=== PATIENT | female | born 1935 | race Caucasian/White ===

== ENCOUNTER 2017-07-22 15:57 | Observation (INO) | payer MEDICARE, OTHER, SELFPAY ==
[2017-07-22 15:58] VITALS: BP 184/83; PULSE 65; RESP 16; TEMP 36.5; O2SAT 98; BMI 26.5
--- NOTE | 2017-07-22 16:12 | CT_ITS ---
STUDY: CT CERVICAL SPINE WITHOUT CONTRAST REASON FOR EXAM: Female, 81 years old. Neck pain after fall. RADIATION DOSAGE (If Supplied By Facility): CTDIvol = ( 24.02 ) mGy, DLP = ( 484.36 ) mGycm TECHNIQUE: High resolution transaxial imaging was performed without contrast material. Sagittal and coronal images were reconstructed. Individualized dose optimization techniques were used for this CT. COMPARISON: None FINDINGS: Normal craniovertebral junction. There are degenerative changes of the anterior atlantoaxial articulation. Normal odontoid process. Normal cervical lordosis. The bones appear osteopenic. There may be old spinous process fracture of C7. C2-3: Normal endplates. Normal disc height and morphology. Normal central canal and intervertebral neuroforamina. C3-4: Normal endplates. Normal disc height and morphology. Normal central canal and intervertebral neuroforamina. C4-5: Normal endplates. Normal disc height and morphology. Normal central canal and intervertebral neuroforamina. C5-6: There is narrowing of this disc space. The patient motion limits the quality of the axial images. Neural foramina are bilaterally narrowed. There is no significant central acquired canal stenosis. C6-7: Normal endplates. Normal disc height and morphology. Normal central canal and intervertebral neuroforamina. C7-T1: Normal endplates. Normal disc height and morphology. Normal central canal and intervertebral neuroforamina. Normal visualized soft tissue structures. CT/Spine Cervical without Contras IMPRESSION: No CT evidence of acute compression or displaced fracture of the cervical spine. Electronically Signed: Kaelyn Jason MD at 17:31 EDT , Service support ,
--- NOTE | 2017-07-22 16:12 | CT_ITS ---
STUDY: CT BRAIN WITHOUT CONTRAST REASON FOR EXAM: Female, 81 years old. Status post fall with the right-sided scalp laceration. Patient has dizziness. RADIATION DOSAGE (If Supplied By Facility): CTDIvol = ( 44.99 ) mGy, DLP = ( 779.24 ) mGycm TECHNIQUE: Transaxial CT imaging of the brain was performed without administration of intravenous contrast material. Multiplanar reformations are submitted for interpretation. Individualized dose optimization techniques were used for this CT. COMPARISON: MRI of the brain dated February 15, 2016. FINDINGS: There is soft tissue contusion adjacent to the posterior right parietal scalp. There is soft tissue emphysema in the region of the contusion suggesting there is associated laceration. Normal calvarium. There is moderate cerebral atrophy with widening of the extra-axial spaces and ventricular dilatation. There are areas of decreased attenuation within the white matter tracts of the supratentorial brain, consistent with microvascular disease changes. There is a small area of encephalomalacia within the left basal ganglia that may be the result of old infarct. Normal brainstem. There is mild cerebellar atrophy. There is no intracranial hemorrhage. There is mild atherosclerotic calcification of intracranial arteries. There are left sided maxillary mucous retention cysts. CT/Brain/Head without Contrast IMPRESSION: 1. Chronic involutional changes of the brain. 2. No CT evidence of acute intracranial hemorrhage. 3. Posterior right parietal scalp contusion and laceration. Electronically Signed: Kaelyn Jason MD at 17:41 EDT , Service support ,
[2017-07-22] MEDS: Diphth,Pertuss(Acell),Tet Vac 0.5 ML Vial IM (16:25)
--- NOTE | 2017-07-22 17:05 | EKG12_ITS ---
Test Reason : DYSRHYTHMIA Blood Pressure : / mmHG Vent. Rate : 056 BPM Atrial Rate : 056 BPM P-R Int : 180 ms QRS Dur : 086 ms QT Int : 446 ms P-R-T Axes : 047 -21 011 degrees QTc Int : 430 ms Sinus bradycardia Nonspecific ST abnormality Abnormal ECG Confirmed by JAYCEE CAMACHO, KEN ([id number]), restaurant expeditor GAMAL BOTELLO ([id number] on 07/24/2017 3:07:45 PM Referred By: SHWETA Confirmed By:KEN CHAMPION MD
[2017-07-22] MEDS: 0.9% Normal Saline 1,000 ML 150 ML IV (17:46)
[2017-07-22 18:00] LABS: Anion Gap 5 (5-15); BUN 14 mg/dL (7-18); BUN/Creat Ratio 11.4 RATIO (10-20); Calcium,Total 8.8 mg/dL (8.5-10.1); Chloride 107 mmol/L (98-107); Creatinine, Serum 1.23 mg/dL (0.55-1.02); EST Glomerular Filtration Rate 44 mL/min (>60); Est Glom Filt Rate - Afr Amer 54 mL/min (>60); Estimated Creatinine Clearance 29.17 ml/min; Glucose 101 mg/dL (74-106); Potassium 3.9 mmol/L (3.5-5.1); Sodium Level 140 mmol/L (136-145)
[2017-07-22 18:04] LABS: Absolute Lymphocyte Count 1.43 X10^3/ul (0.83-4.51); Basophil# 0.02 X10^3/uL; Basophil% 0.1 % (0-1); Eosinophil# 0.19 X10^3/uL; Eosinophils% 1.3 % (0-5); Hematocrit 41.2 % (37-47); Hemoglobin 13.8 g/dl (12.0-15.0); Lymphocyte # 1.43 X10^3/ul (4.0); Lymphocyte % 9.8 % (19-41); Mean Corp Hgb Conc 33.5 g/gl (32-36); Mean Corpuscular Hgb 31.3 pg (27.0-32.0); Mean Corpuscular Volume 93.4 fL (81-99); Mean Platelet Vol. 10.6 fl (6.2-12.0); Monocyte# 0.79 X10^3/uL; Monocyte% 5.4 % (0-10); Neutrophil # 12.03 X10^3/uL (2.7-7.7); Neutrophil % 82.9 % (47-70); Platelet Count 140 K/mm3 (150-450); RBC Distribution Width CV 12.7 % (11.6-14.6); RBC Distribution Width SD 42.9 fl (35.1-43.9); Red Blood Count 4.41 M/mm3 (4.2-5.4); White Blood Count 14.5 K/mm3 (4.4-11.0)
[2017-07-22 18:07] LABS: POSITIVE COUNT NO; POSITIVE DIFFERENTIAL NO; POSITIVE MORPHOLOGY NO
--- NOTE | 2017-07-22 18:17 | ED.VISSUMM ---
- ER Visit Summary Date of Service: 07/22/17 Chief Complaint: [Head injury] History of Present Illness: The patient is a 81 F [presents the emergency department with a head injury that occurred today prior to arrival emergency department. Patient apparently had gone outside to pull some weeds and cannot really tell me what happened. Patient does have a history of Alzheimer's dementia. Patient did eventually come into the house and her daughter noted that she had blood about her head and a gash to the back of her head. Daughter went and looked outside and noted that there was blood at the bottom of the steps leading into the house however when she looked at where the patient was gardening she did not see any evidence of blood. Patient on arrival describes a headache. She denied neck pain. She denies any chest pain or abdominal pain.] Physical Examination: [HEENT-PERRLA, EOMI. Cranial nerves II through XII grossly intact. TMs clear. Mucous membranes moist. No adenopathy. Patient has a 4 cm scalp laceration to the right posterior occiput without any bony step-offs or depressions noted. No significant bleeding currently. Patient did have some mild tenderness to the lower C-spine without any step-offs noted. Cardiovascular-regular rate and rhythm without murmur or ectopy Lungs-clear to auscultation, chest wall stable without crepitus or subcu emphysema Abdomen-normoactive bowel sounds, soft, nontender, no rebound or rigidity, no peritoneal signs. Extremities-intact ?4, normal range of motion, normal pulses, atraumatic] Test Results: [CT scan of the brain without contrast showed chronic involutional changes but no hemorrhage or any acute disease process. CT C-spine showed no fractures. CBC with differential showed a slightly elevated white blood cell count of 14.5, hemoglobin 14, hematocrit 41, platelets 140. Chemistries unremarkable. Troponin was less than 0.015. EKG showed sinus bradycardia with rate of 56 bpm.] Emergency Department Course and Treatment: Patient continues to complain of dizziness with standing. Urinalysis is ordered and pending as patient refused straight cath. [] Treatment Plan: [Admit] Disposition: [Admit] Impression: [Dizziness Closed head injury Scalp laceration 4 cm-simple repair] This note was generated with CoverHoundation software. It may contain incorrect words, spelling, and punctuation that were not noted in review of the chart prior to signing ED Disposition - Plan for ED Patient: Chief Complaint: Laceration Referrals: Lexa Brooks DO [Primary Care Provider] -
--- NOTE | 2017-07-22 18:20 | NURSING ---
DR GABRIEL FOR DR ROCK
[2017-07-22 18:21] VITALS: BP 131/89; PULSE 83; RESP 18; O2SAT 96
--- NOTE | 2017-07-22 18:23 | ED.DCSUM_ITS ---
- ER Visit Summary Date of Service: 07/22/17 Chief Complaint: [Head injury] History of Present Illness: The patient is a 81 F [presents the emergency department with a head injury that occurred today prior to arrival emergency department. Patient apparently had gone outside to pull some weeds and cannot really tell me what happened. Patient does have a history of Alzheimer's dementia. Patient did eventually come into the house and her daughter noted that she had blood about her head and a gash to the back of her head. Daughter went and looked outside and noted that there was blood at the bottom of the steps leading into the house however when she looked at where the patient was gardening she did not see any evidence of blood. Patient on arrival describes a headache. She denied neck pain. She denies any chest pain or abdominal pain. ] Physical Examination: [HEENT-PERRLA, EOMI. Cranial nerves II through XII grossly intact. TMs clear. Mucous membranes moist. No adenopathy. Patient has a 4 cm scalp laceration to the right posterior occiput without any bony step -offs or depressions noted. No significant bleeding currently. Patient did have some mild tenderness to the lower C-spine without any step-offs noted. Cardiovascular-regular rate and rhythm without murmur or ectopy Lungs-clear to auscultation, chest wall stable without crepitus or subcu emphysema Abdomen-normoactive bowel sounds, soft, nontender, no rebound or rigidity, no peritoneal signs. Extremities-intact ?4, normal range of motion, normal pulses, atraumatic] Test Results: [CT scan of the brain without contrast showed chronic involutional changes but no hemorrhage or any acute disease process. CT C- spine showed no fractures. CBC with differential showed a slightly elevated white blood cell count of 14.5, hemoglobin 14, hematocrit 41, platelets 140. Chemistries unremarkable. Troponin was less than 0.015. EKG showed sinus bradycardia with rate of 56 bpm.] Emergency Department Course and Treatment: Patient continues to complain of dizziness with standing. Urinalysis is ordered and pending as patient refused straight cath. [] Treatment Plan: [Admit] Disposition: [Admit] Impression: [Dizziness Closed head injury Scalp laceration 4 cm-simple repair] This note was generated with [employer]orge[employer]ation software. It may contain incorrect words, spelling, and punctuation that were not noted in review of the chart prior to signing ED Disposition - Plan for ED Patient: Chief Complaint: Laceration Referrals: Lexa Brooks DO [Primary Care Provider] -
[2017-07-22 19:02] LABS: Mucous, Urine 0 SEEN /hpf (<or=2+)
--- NOTE | 2017-07-22 19:04 | HP.PCM_ITS ---
Problem List (1) Lightheadedness Status: Acute (2) Fall Status: Acute Qualifiers: Encounter type: initial encounter Qualified Code(s): W19.XXXA - Unspecified fall, initial encounter History of Present Illness Date of Admission: 07/22/17 Chief Complaint: Fall, lightheadedness, right occipital scalp laceration The patient is a 81 year old F was seen in the emergency room at [facility] after sustaining a fall at home which was unwitnessed and sustaining a laceration to the right occipital scalp area. Patient has Alzheimer's dementia and is unable to give an adequate history-it is unknown whether she lost consciousness after the fall. It is also unknown why the patient fell. Review of systems was unobtainable from the patient also. Patient lives with her at home. Her daughter and are in the room at the time of my examination. Evaluation in the emergency room included a CT of the cervical spine CT of the brain was no acute process noted, patient had a CBC which showed an elevated white blood cell count, creatinine was slightly elevated. Urinalysis was not able be obtained at the time of this dictation it is pending. The right occipital scalp laceration was sutured with 5 nylon sutures by the emergency room physician. Patient continued to complain of dizziness but when asked whether the room was spinning she said now. Due to the fact that the patient will be unstable walking and may have had a concussion, I feel patient needs to be placed in observation status on MedSurg and monitored. She is on a beta-ginette and I would like to monitor on telemetry to make sure she does not get bradycardic. Patient will be seen by PT and OT tomorrow Past Medical History Past Medical History (Chronic Problems): Chronic Problems Dementia (Chronic) Allergies No Known Allergies Allergy (Verified 07/22/17 15:57) Home Medications: Ambulatory Orders Medication Instructions Recorded Atenolol [Tenormin (beta ginette)] 25 mg PO DAILY 02/15/16 Donepezil HCl 10 mg PO DAILY #1 tablet 02/15/16 Memantine Hydrochloride [Namenda] 5 mg PO BID #60 tablet 02/15/16 Simvastatin [Zocor] 20 mg PO QHS 02/15/16 Valsartan [Diovan] 160 mg PO DAILY #90 tablet 02/15/16 Diazepam [Valium] 2 mg PO TID #10 tablet 04/06/17 Surgical History: tonsillectomy, - - Tubal ligation, removal of breast cyst Psychiatric History: - - Alzheimer's dementia CORPORATE RELATIONS DIRECTOR History: No pertinent CORPORATE RELATIONS DIRECTOR history Lives: Spouse/ Significant Other Smoking Status: Never smoker Tobacco Use: Non-smoker Alcohol: None Drugs: None - *Family History Maternal History Items: Cancer - Colon cancer Paternal History Items: - - Alzheimer's dementia Review of Systems Comment: Unobtainable due to Alzheimer's dementia, information was obtained from the patient's daughter and who are in the room at the time my examination VTE Information - Inpt Only VTE Present on Admission: No VTE Mechan Device Prophylaxis: SCD's VTE Pharm Prophylaxis ordered?: No Reason prophylaxis not ordered:: Treatment Not Indicated - SCD's ordered Patient Problems: Active and Suspected Problems Lightheadedness (Acute) Fall (Acute) - Physical Exam General: Alert, Cooperative, No apparent distress, Well developed, Well nourished, Confused HEENT: Atraumatic, PERRLA, EOMI, Normocephalic, - - Scalp laceration noted in the occipital area 4 cm in length Oral: Moist Mucosa Neck: Supple, No JVD, Negative Carotid Bruits, No Nuchal Rigidity, Trachea Midline, Thyroid Normal Size and Texture Lungs: Clear to auscultation, Normal air movement, No rhonchi, No wheeze, No rales Cardiovascular: Regular rate, Regular Rhythm, Normal S1, Normal S2, No murmurs, No Ectopic Activity, PMI Normal, No rub noted, No Gallop Abdomen: Bowel Sounds Present, Soft, Non Tender, Non-Distended, No hernias noted Extremities: No clubbing, No cyanosis, No edema, Capillary Refill Less than 3 Seconds Skin: No rashes, Ulcer/ Wound - There is a skin tear noted over the patient's right forearm near the elbow area Musculoskeletal: No Tenderness to Palpation of Joints or Extremities Neurological: Cranial nerves II-XII grossly intact, Neuro grossly intact, Sensory exam intact to light touch and pain, Coordination normal Psych/Mental Status: - - She is alert, she follows commands appropriately, she is confused Vital Signs Temp Pulse Resp BP Pulse Ox 97.7 F L 83 18 131/89 H 96 07/22/17 15:58 07/22/17 18:21 07/22/17 18:21 07/22/17 18:21 07/22/17 18:21 Oxygen Delivery Method Room Air Weight: 68.039 kg Body Mass Index (BMI) 26.5 Laboratory Tests Past 24 Hrs 07/22/17 07/22/17 17:35 17:35 WBC 14.5 H RBC 4.41 Hgb 13.8 Hct 41.2 MCV 93.4 MCH 31.3 MCHC 33.5 RDW 12.7 RDW Differential 42.9 Plt Count 140 L MPV 10.6 Immature Gran % (Auto) 0.500 Neut % (Auto) 82.9 H Lymph % (Auto) 9.8 L Nolan % (Auto) 5.4 Eos % (Auto) 1.3 Baso % (Auto) 0.1 Absolute Neuts (auto) 12.0 H Absolute Lymphs (auto) 1.43 Total Counted Not Reportable Sodium 140 Potassium 3.9 Chloride 107 Carbon Dioxide 28.0 Anion Gap 5 BUN 14 Creatinine 1.23 H Estim Creat Clear Calc 29.17 Est GFR (MDRD) Af Amer 54 L Est GFR (MDRD) Non-Af 44 L BUN/Creatinine Ratio 11.4 Glucose 101 Calcium 8.8 Troponin I < 0.015 Assessment/Plan Active and Suspected Problems Lightheadedness (Acute) Fall (Acute) #1 concussion/closed head injury-patient will be placed in observation status on MedSurg telemetry, she will continue on her home medications, I will place her on Valium 2 mg p.o. 3 times daily-she has not been taking this at home, it is a as needed medication. PT and OT will see the patient, I do not believe the patient needs neurological checks #2 occipital scalp laceration, this is not bleeding at this time #3 hypertension-patient will be maintained on her present medications, she will be on telemetry due to the fact she is on a beta-ginette and she is bradycardic presently. #4 Alzheimer's dementia-patient's Namenda will be increased when she leaves the hospital, she is only on 5 mg twice a day. #5 leukocytosis-etiology unclear, at the time of this dictation urinalysis is pending. CBC will be rechecked tomorrow Code Visit OBSV E&M: 65816 Initial observation care L3
[2017-07-22 19:06] LABS: Color, Urine Yellow (Yellow); Glucose, Dipstick Normal (Normal); Ketone-Dipstick Negative (Negative); Leukocyte Esterase-Dipstick 500 /ul (Negative); Nitrite-Dipstick Negative (Negative); Occult Blood-Urine 25 /ul (Negative); Protein-Dipstick Negative (Negative); Urine Bilirubin Dipstick Negative (Negative); Urine Clarity Cloudy (Clear); Urine Urobilinogen Normal (Normal)
[2017-07-22 19:09] VITALS: BP 142/82; PULSE 86; RESP 18; O2SAT 97
[2017-07-22 19:18] LABS: Bacteria 1+ /hpf (None Seen); Squamous Epithelial Cells - UA 0-5 SEEN /hpf (5-10); Transitional Epithelial - Ur 0-5 SEEN /hpf (0-5); White Blood Cells 10-25 SEEN /hpf (0-5)
[2017-07-22 19:19] LABS: Red Blood Cells-Urine 0-5 SEEN /hpf (0-5)
[2017-07-22] MEDS: 0.9% Normal Saline 1,000 ML 75 ML IV (19:50)
[2017-07-22 19:52] VITALS: BP 172/90; PULSE 62; RESP 16; TEMP 36.4; O2SAT 99
[2017-07-22 20:16] VITALS: BMI 25.9
[2017-07-22] MEDS: Ondansetron 4 MG/2 ML Vial IV (20:27)
[2017-07-22 20:28] VITALS: BMI 25.9
[2017-07-22 21:59] VITALS: PULSE 62
[2017-07-22] MEDS: diazePAM 2 MG Tablet PO (22:52)
[2017-07-22] MEDS: Memantine Hydrochloride 5 MG Tablet PO (22:52)
[2017-07-23 01:00] VITALS: BP 147/72
[2017-07-23 02:29] VITALS: PULSE 69
[2017-07-23 03:31] VITALS: BP 160/86; PULSE 73; RESP 16; TEMP 36.6; O2SAT 95
[2017-07-23 06:27] LABS: Absolute Lymphocyte Count 1.49 X10^3/ul (0.83-4.51); Absolute Neutrophil Count 7.8 X10^3/uL (2.0-7.7); Basophil# 0.01 X10^3/uL; Basophil% 0.1 % (0-1); Eosinophil# 0.19 X10^3/uL; Eosinophils% 1.9 % (0-5); Hematocrit 39.8 % (37-47); Hemoglobin 13.3 g/dl (12.0-15.0); Lymphocyte # 1.49 X10^3/ul (4.0); Lymphocyte % 14.7 % (19-41); Mean Corp Hgb Conc 33.4 g/gl (32-36); Mean Corpuscular Volume 92.8 fL (81-99); Mean Platelet Vol. 10.4 fl (6.2-12.0); Monocyte# 0.67 X10^3/uL; Monocyte% 6.6 % (0-10); Neutrophil # 7.75 X10^3/uL (2.7-7.7); Neutrophil % 76.5 % (47-70); Platelet Count 136 K/mm3 (150-450); RBC Distribution Width CV 12.7 % (11.6-14.6); RBC Distribution Width SD 42.8 fl (35.1-43.9); Red Blood Count 4.29 M/mm3 (4.2-5.4); White Blood Count 10.1 K/mm3 (4.4-11.0)
[2017-07-23] MEDS: diazePAM 2 MG Tablet PO ×2 (06:35→14:24)
[2017-07-23] MEDS: Acetaminophen 325 MG Tablet 650 MG PO (06:36)
[2017-07-23 06:44] LABS: Anion Gap 8 (5-15); BUN 9 mg/dL (7-18); BUN/Creat Ratio 9.2 RATIO (10-20); Calcium,Total 7.9 mg/dL (8.5-10.1); Chloride 110 mmol/L (98-107); Creatinine, Serum 0.98 mg/dL (0.55-1.02); EST Glomerular Filtration Rate 58 mL/min (>60); Est Glom Filt Rate - Afr Amer 70 mL/min (>60); Estimated Creatinine Clearance 36.61 ml/min; Glucose 108 mg/dL (74-106); Potassium 3.8 mmol/L (3.5-5.1); Sodium Level 141 mmol/L (136-145)
[2017-07-23 06:58] LABS: POSITIVE COUNT NO; POSITIVE DIFFERENTIAL NO; POSITIVE MORPHOLOGY NO
[2017-07-23 07:45] VITALS: PULSE 59
[2017-07-23] MEDS: Atenolol 25 MG Tablet PO (09:24)
[2017-07-23] MEDS: Donepezil HCl 10 MG Tablet PO (09:24)
[2017-07-23] MEDS: Memantine Hydrochloride 5 MG Tablet PO (09:24)
[2017-07-23] MEDS: 0.9% Normal Saline 1,000 ML 75 ML IV (09:24)
[2017-07-23 09:25] VITALS: BP 147/71; PULSE 69; RESP 18; TEMP 36.6; O2SAT 95
--- NOTE | 2017-07-23 10:51 | CASEMGMT ---
RN CM Face to Face with patient for initial transition planning/care coordination assessment. RN CM introduced self and role at [facility]. Patient sitting in chair, alert and confused, spouse and daughter at bedside. Patient willing to participate in assessment and is able to answer some questions with assistance from family. Care providers, pharmacy, and demographics verified. See link attached. Patient wishes to discharge home, therapy recommending HHC. Family agreeable for C and would like [facility]. Referral sent to [facility] with acceptance. Patient also setup with [facility] through [employer] which family was agreeable for [employer]. Family state they have no further needs or concerns at this time. CM to follow for discharge planning needs that may arise. Disposition Plan: Patient to discharge home with HHC, family support, and follow-up plans in place. Dora DIMAS, RN
--- NOTE | 2017-07-23 11:56 | PCM.DC ---
- Discharge Diagnoses Current Active Problems: Current Active and Chronic Problems Lightheadedness (Acute) Fall (Acute) You will use the following diet at home:: No restrictions Your food should be the consistency of: Regular Your liquids should be the consistency of: Regular/Thin Discharge Activity: Return to Normal Activity, Use Walker Weight Bearing Status: Full weight bearing Allergies/Adverse Reactions: Allergies No Known Allergies Allergy (Verified 07/22/17 15:57) Medications to take at Discharge Atenolol [Tenormin (beta ginette)] 25 mg PO DAILY 02/15/16 Simvastatin [Zocor] 20 mg PO QHS 02/15/16 Valsartan [Diovan] 160 mg PO DAILY #90 tablet 02/15/16 Diazepam [Valium] 2 mg PO TID #20 tab 07/23/17 Donepezil HCl [Aricept] 10 mg PO DAILY #30 tab 07/23/17 Memantine Hydrochloride [Namenda] 10 mg PO BID #60 tab 07/23/17 The following prescriptions were given: Donepezil HCl [Aricept] 10 mg PO DAILY #30 tab Memantine Hydrochloride [Namenda] 10 mg PO BID #60 tab Diazepam [Valium] 2 mg PO TID #20 tab Primary Care Physician: Lexa Brooks DO [Primary Care Provider] - Please follow up with your Primary Care Physician in: in one week for a visit and suture removal
[2017-07-23 14:25] VITALS: BP 162/84; PULSE 59; RESP 18; TEMP 36.9; O2SAT 95
--- NOTE | 2017-07-24 19:04 | DS.PCM_ITS ---
Discharge Date and Diagnosis Date of Admission: 07/22/17 Date of Discharge: 07/23/17 - Primary Discharge Diagnosis #1 concussion secondary to unwitnessed fall #2 right occipital scalp laceration #3 Alzheimer's dementia #4 hypertension #5 chronic renal disease stage III-etiology unknown - Secondary Discharge Diagnosis Chronic Problems Dementia (Chronic) Hospital Course and Treatment Operations: None Procedures: None Summary of Care Provided: The patient is a 81 year old F seen in the emergency room at [facility] after sustaining an unwitnessed fall at home. Patient was not able to provide any information due to the fact she had dementia. Examination in the emergency room revealed a slightly elevated white blood cell count, creatinine was slightly elevated, imaging studies did not show any evidence of intracranial hemorrhage, cervical spine CT did not show any evidence of dislocation or fracture. Patient complained of a feeling of lightheadedness in the emergency room and it was felt she was unable to walk without maximal assistance. Patient was placed in observation status on [facility] 3 for presumed concussion, she was seen by PT and OT, and her CBC was repeated which showed a normal white blood cell count. Patient's urinalysis had some white cells red cells and bacteria but the patient voiced no symptoms or signs of urinary tract infection and it was not felt that she had a urinary tract infection. Patient had 5 sutures placed in her occipital scalp area while in the emergency room due to a laceration in this area from her fall. On 07/23/17, patient was seen and examined, she was felt to be stable for discharge home and was instructed to use a walker-her family will assist her in using a walker. Outpatient PT and OT were arranged Discharge Activity: Return to Normal Activity, Use Walker Weight Bearing Status: Full weight bearing Home Medications: Medications to take at Discharge Atenolol [Tenormin (beta ginette)] 25 mg PO DAILY 02/15/16 Simvastatin [Zocor] 20 mg PO QHS 02/15/16 Valsartan [Diovan] 160 mg PO DAILY #90 tablet 02/15/16 Diazepam [Valium] 2 mg PO TID #20 tab 07/23/17 Donepezil HCl [Aricept] 10 mg PO DAILY #30 tab 07/23/17 Memantine Hydrochloride [Namenda] 10 mg PO BID #60 tab 07/23/17 Following Prescrptions Were Given to Patient: Donepezil HCl [Aricept] 10 mg PO DAILY #30 tab Memantine Hydrochloride [Namenda] 10 mg PO BID #60 tab Diazepam [Valium] 2 mg PO TID #20 tab Primary Care Physician: Lexa Brooks DO [Primary Care Provider] - Please follow up with your Primary Care Physician in: in one week for a visit and suture removal Disposition: Home with Home Health Minutes spent on discharge:: 25 Patient Condition:: Stable Medical Necessity - Tobacco Use Smoking Status: Never smoker Tobacco Use: Non-smoker Meaningful Use Info Meaningful Use Diagnoses (Choose all that apply): None applicable Code Visit OBSV E&M: 57428 Observation care discharge
== END 2017-07-23 15:01 | disposition home health service (06) ==
LOC: ED 16:49 → MS3 18:56
PROVIDERS: Admitting Provider Internal Medicine; Emergency Provider Emergency Medicine; Family Provider Student in an Organized Health Care Education/Training Program; PCP Student in an Organized Health Care Education/Training Program; Visit Provider Internal Medicine
DX: S06.0X9A Concussion with loss of consciousness of unspecified duration, initial encounter (principal); S01.01XA Laceration without foreign body of scalp, initial encounter; W19.XXXA Unspecified fall, initial encounter; Y93.H2 Activity, gardening and landscaping; G30.9 Alzheimer's disease, unspecified; F02.80 Dementia in other diseases classified elsewhere, unspecified severity, without behavioral disturbance, psychotic disturbance, mood disturbance, and anxiety; Z79.899 Other long term (current) drug therapy; Y92.007 Garden or yard of unspecified non-institutional (private) residence as the place of occurrence of the external cause; Z23 Encounter for immunization; D72.829 Elevated white blood cell count, unspecified; I12.9 Hypertensive chronic kidney disease with stage 1 through stage 4 chronic kidney disease, or unspecified chronic kidney disease; N18.3 Chronic kidney disease, stage 3 (moderate)
CPT/HCPCS: 12002; 36415; 70450; 72125; 80048; 81001; 84484; 85025; 90471; 90715; 93005; 96361; 96374; 97162; 97166; 97802; 99218; 99283; J7030; A4216; G0378; J2405

== ENCOUNTER 2017-07-25 17:17 | Inpatient (IN) | payer MEDICARE, OTHER, SELFPAY ==
[2017-07-25] VITALS (7 sets, daily range): BP systolic 165–204; BP diastolic 64–86; PULSE 55–60; RESP 19–24; TEMP 36.8–36.9; O2SAT 93–96; BMI 24.9; BMI 24.1
--- NOTE | 2017-07-25 17:41 | EKG12_ITS ---
Test Reason : Blood Pressure : / mmHG Vent. Rate : 055 BPM Atrial Rate : 055 BPM P-R Int : 172 ms QRS Dur : 090 ms QT Int : 446 ms P-R-T Axes : 030 -22 000 degrees QTc Int : 426 ms Sinus bradycardia Nonspecific ST abnormality Poor R wave progression Abnormal ECG Confirmed by TU CAMACHO, JAMES ([id number]), development editor GAMAL BOTELLO ([id number]) on 07/27/2017 10:56:27 AM Referred By: MARICEL Confirmed By:JAMES MAE MD
[2017-07-25 18:02] LABS: Absolute Lymphocyte Count 1.72 X10^3/ul (0.83-4.51); Absolute Neutrophil Count 6.4 X10^3/uL (2.0-7.7); Basophil# 0.03 X10^3/uL; Basophil% 0.3 % (0-1); Eosinophil# 0.49 X10^3/uL; Eosinophils% 5.2 % (0-5); Hematocrit 41.8 % (37-47); Hemoglobin 14.1 g/dl (12.0-15.0); Lymphocyte # 1.72 X10^3/ul (4.0); Lymphocyte % 18.3 % (19-41); Mean Corp Hgb Conc 33.7 g/gl (32-36); Mean Corpuscular Volume 91.9 fL (81-99); Mean Platelet Vol. 10.2 fl (6.2-12.0); Monocyte# 0.74 X10^3/uL; Monocyte% 7.9 % (0-10); Neutrophil % 68.1 % (47-70); Platelet Count 146 K/mm3 (150-450); RBC Distribution Width CV 12.4 % (11.6-14.6); RBC Distribution Width SD 41.4 fl (35.1-43.9); Red Blood Count 4.55 M/mm3 (4.2-5.4); White Blood Count 9.4 K/mm3 (4.4-11.0)
[2017-07-25 18:03] LABS: POSITIVE COUNT NO; POSITIVE DIFFERENTIAL NO; POSITIVE MORPHOLOGY NO
[2017-07-25 18:12] LABS: Bacteria 0 SEEN /hpf (None Seen); White Blood Cells 0 SEEN /hpf (0-5)
[2017-07-25 18:14] LABS: Anion Gap 6 (5-15); BUN 14 mg/dL (7-18); Calcium,Total 8.7 mg/dL (8.5-10.1); Chloride 106 mmol/L (98-107); Creatinine, Serum 1.08 mg/dL (0.55-1.02); EST Glomerular Filtration Rate 52 mL/min (>60); Est Glom Filt Rate - Afr Amer 62 mL/min (>60); Estimated Creatinine Clearance 34.68 ml/min; Glucose 89 mg/dL (74-106); Potassium 3.6 mmol/L (3.5-5.1); Sodium Level 143 mmol/L (136-145)
[2017-07-25 18:23] LABS: Color, Urine Yellow (Yellow); Glucose, Dipstick Normal (Normal); Ketone-Dipstick Negative (Negative); Leukocyte Esterase-Dipstick Negative /ul (Negative); Nitrite-Dipstick Negative (Negative); Occult Blood-Urine 150 /ul (Negative); Protein-Dipstick Negative (Negative); Urine Bilirubin Dipstick Negative (Negative); Urine Clarity Clear (Clear); Urine Urobilinogen Normal (Normal)
[2017-07-25 18:44] LABS: Mucous, Urine 3+ /hpf (<or=2+); Red Blood Cells-Urine 10-25 SEEN /hpf (0-5); Squamous Epithelial Cells - UA 0-5 SEEN /hpf (5-10)
--- NOTE | 2017-07-25 19:13 | ED.VISSUMM ---
- ER Visit Summary Date of Service: 07/25/17 Chief Complaint: Vertigo History of Present Illness: The patient is a [address] Brooks. She has a history of dementia and is a poor informant. Family reports that she fell 3 days ago. She was admitted to the hospital and kept overnight. They state that she has been confused for the past 2 days. This seems to wax and wane. Yesterday she was doing well. Today she has not gotten out of bed all day. Patient reports that this is because she is dizzy. It increases with movement of her head or standing. Home health nurse came out today and sent her to the emergency department with concerns about the safety of her and her together at home alone as they are both confused. Physical Examination: Vitals: Stable. Afebrile. General: Well-nourished and well-developed. Head: Normocephalic atraumatic. Neck: Supple, no lymphadenopathy. No JVD. Nontender. Cardiovascular: Bradycardic regular rhythm with a 2 out of 6 systolic murmur. Respiratory: No respiratory distress. Clear to auscultation bilaterally. Abdominal: Soft, nontender, nondistended, normal bowel sounds. No guarding, rebound, or peritoneal signs. Back: Nontender. Extremities: Nontender, no edema. Skin tear on her left forearm. Skin: Normal color, no rash. Neurologic: Alert and oriented ?1. Cranial nerves II through XII are intact. Normal strength and sensation. Psych: Normal affect. Test Results: EKG sinus bradycardia [address] changes. CBC is more for platelets 146 lymphocytes of 18. Chem-7 more for creatinine 1.08. UA is remarkable for 10-25 red blood cells (this was a cath specimen) and no bacteria. Emergency Department Course and Treatment: Patient has rested comfortably in the emergency department without complaint. Treatment Plan: At this time I do not feel the patient is safe to go home. She will be discussed with Dr. Henderson and admitted for further evaluation and treatment. Disposition: Admitted in stable condition. Impression: 1. Generalized weakness. 2. Confusion. 3. Skin tear left forearm. This note was generated with [employer] software. It may contain incorrect words, spelling, and punctuation that were not noted in review of the chart prior to signing ED Disposition - Plan for ED Patient: Chief Complaint: Syncope Referrals: Lexa Brooks DO [Primary Care Provider] -
--- NOTE | 2017-07-25 19:37 | HP.PCM_ITS ---
Problem List (1) Near syncope Status: Acute (2) Vertigo Status: Acute (3) Fall Status: Acute Qualifiers: Encounter type: initial encounter Qualified Code(s): W19.XXXA - Unspecified fall, initial encounter (4) Abnormal CT scan, head Status: Acute (5) Dysphagia Status: Chronic Qualifiers: Dysphagia type: unspecified Qualified Code(s): R13.10 - Dysphagia, unspecified (6) Dementia Status: Chronic Qualifiers: Dementia type: Alzheimer's disease Alzheimer's disease onset: unspecified onset Dementia behavioral disturbance: without behavioral disturbance Qualified Code(s): G30.9 - Alzheimer's disease, unspecified; F02.80 - Dementia in other diseases classified elsewhere without behavioral disturbance History of Present Illness Date of Admission: 07/25/17 Chief Complaint: Dizzy, lightheaded and vertigo since yesterday The patient is a 81 year old F with history of hypertension and dementia was discharged on 07/23/2017 after management for an unwitnessed fall with head laceration status post suture came to ER for dizziness, lightheadedness and vertigo. As per the daughter, who is power of sandblaster paint sprayer of health, whenever she tries to get up from bed, she feels dizzy lightheaded and vertigo. She is afraid of moving because of dizziness and fall. She also has mild generalized weakness. Patient also has dementia and she has waxing and waning confusion. As per the EMS vitals, vitals were stable except blood pressure 188/89 which later on got normal 130/68. No chest symptoms. Basic lab work in ER shows K3.6, RBC in UA 10-25 cells per hpf but no pyuria. Patient denies lower urinary tract symptoms. EKG normal sinus bradycardia at 55 bpm Past Medical History Past Medical History (Chronic Problems): Chronic Problems Dysphagia (Chronic) Dementia (Chronic) Allergies No Known Allergies Allergy (Verified 07/25/17 17:18) Home Medications: Ambulatory Orders Medication Instructions Recorded Atenolol [Tenormin (beta ginette)] 25 mg PO DAILY 02/15/16 Simvastatin [Zocor] 20 mg PO QHS 02/15/16 Donepezil HCl [Aricept] 10 mg PO DAILY 07/25/17 Memantine Hydrochloride [Namenda] 10 mg PO BID 07/25/17 Valsartan [Diovan] 160 mg PO DAILY 07/25/17 Surgical History: tonsillectomy, - - Tubal ligation, removal of breast cyst Psychiatric History: - - Alzheimer's dementia 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 Denies: Chills, Fever, Weight Change HEENT: Denies: Head Aches, Sinus Congestion, Sinus Drainage Cardiovascular: Denies: Chest Pain, Palpitations Respiratory: Denies: Cough, Shortness of breath at rest, Sputum production Gastrointestinal: Denies: Abdominal Pain, Nausea, Vomiting Genitourinary: Denies: Dysuria Musculoskeletal: Reports: Joint stiffness. Denies: Joint Tenderness Skin: Denies: Rash, Wounds Neurological: Denies: Numbness, Tingling, Focal weakness Psychiatric: Reports: Anxiety. Denies: Depression, Homicidal Ideations, Suicidal Ideations Hematologic/ Lymphatic: Denies: Easy Bruising, Easy Bleeding VTE Information - Inpt Only VTE Present on Admission: No VTE Mechan Device Prophylaxis: SCD's VTE Pharm Prophylaxis ordered?: Yes Patient Problems: Active and Suspected Problems Near syncope (Acute) Vertigo (Acute) - Physical Exam General: Alert, Oriented x3, Cooperative, Confused - Sometimes confusion and disorientation, - HEENT: Atraumatic, PERRLA, EOMI, Normocephalic Neck: Supple, No JVD, Negative Carotid Bruits Lungs: Clear to auscultation, Normal air movement Cardiovascular: Regular Rhythm, Normal S1, No murmurs Abdomen: Bowel Sounds Present, Soft, Non Tender, Non-Distended, No Hepato- splenomegaly Extremities: No edema, Capillary Refill Less than 3 Seconds Skin: No rashes, No breakdown Musculoskeletal: No Tenderness to Palpation of Joints or Extremities, Arthritic Changes, Muscle Wasting Neurological: Cranial nerves II-XII grossly intact, Neuro grossly intact Psych/Mental Status: Normal Affect, Appropriate Vital Signs Temp Pulse Resp BP Pulse Ox 98.5 F 55 L 22 H 185/64 H 96 07/25/17 17:19 07/25/17 19:23 07/25/17 19:23 07/25/17 19:23 07/25/17 19:23 Oxygen Delivery Method Room Air Weight: 145 lb Body Mass Index (BMI) 24.9 Laboratory Tests Past 24 Hrs 07/25/17 07/25/17 07/25/17 17:50 17:50 18:08 WBC 9.4 RBC 4.55 Hgb 14.1 Hct 41.8 MCV 91.9 MCH 31.0 MCHC 33.7 RDW 12.4 RDW Differential 41.4 Plt Count 146 L MPV 10.2 Immature Gran % (Auto) 0.200 Neut % (Auto) 68.1 Lymph % (Auto) 18.3 L [place] % (Auto) 7.9 Eos % (Auto) 5.2 H Baso % (Auto) 0.3 Absolute Neuts (auto) 6.4 Absolute Lymphs (auto) 1.72 Total Counted Not Reportable Sodium 143 Potassium 3.6 Chloride 106 Carbon Dioxide 31.0 Anion Gap 6 BUN 14 Creatinine 1.08 H Estim Creat Clear Calc 34.68 Est GFR (MDRD) Af Amer 62 Est GFR (MDRD) Non-Af 52 L BUN/Creatinine Ratio 13.0 Glucose 89 Calcium 8.7 Urine Color Yellow Urine Clarity Clear Urine pH 6.0 Ur Specific [place] 1.010 Urine Protein Negative Urine Glucose (UA) Normal Urine Ketones Negative Urine Occult Blood 150 H Urine Nitrite Negative Urine Bilirubin Negative Urine Urobilinogen Normal Ur Leukocyte Esterase Negative Urine RBC 10-25 SEEN Urine WBC 0 SEEN Ur Squamous Epith Cells 0-5 SEEN Urine Bacteria 0 SEEN Urine Mucus 3+ Assessment/Plan Active and Suspected Problems Near syncope (Acute) Vertigo (Acute) This is a 81 year old F with history of hypertension and dementia was discharged on 07/23/2017 after management for an unwitnessed fall with head laceration status post suture came to ER for dizziness, lightheadedness and vertigo. As per the daughter, who is power of sandblaster paint sprayer of health, whenever she tries to get up from bed, she feels dizzy lightheaded and vertigo. She is afraid of moving because of dizziness and fall. She also has mild generalized weakness. Patient also has dementia and she has waxing and waning confusion. As per the EMS vitals, vitals were stable except blood pressure 188/89 which later on got normal 130/68. No chest symptoms. Basic lab work in ER shows K3.6, RBC in UA 10-25 cells per hpf but no pyuria. Patient denies lower urinary tract symptoms. 1. Near syncope with vertigo on movement: [facility] had CT head and C-spine which showed no acute change including no acute ICH or acute compression or displaced fracture of cervical spine. PT and OT. Patient will need Romy-Hallpike maneuver to assess for BPPV. Symptomatic management. 2. Generalized weakness with failure to thrive, with history of dementia and fluctuating alertness/confusion suggestive of delirium: Currently, patient is on baseline. Patient will need protective services case worker evaluation and SNF placement. Family agrees for that. Continue Aricept and Namenda. 3. Hypertension: On antihypertensive medication losartan and atenolol. Home medication reconciliation done. 4. DVT prophylaxis: On Lovenox and bilateral SCDs. This note was generated with Meddle dictation software. Every effort was made to ensure accuracy, however computerized electric drill operator mistakes may persist. Laboratory Results 07/25/17 17:50: WBC 9.4, RBC 4.55, Hgb 14.1, Hct 41.8, MCV 91.9, MCH 31.0, MCHC 33.7, RDW 12.4, RDW Differential 41.4, Plt Count 146 L, MPV 10.2, Immature Gran % (Auto) 0.200, Neut % (Auto) 68.1, Lymph % (Auto) 18.3 L, [place] % (Auto) 7.9, Eos % (Auto) 5.2 H, Baso % (Auto) 0.3, Absolute Neuts (auto) 6.4, Absolute Lymphs (auto) 1.72, Total Counted Not Reportable 07/25/17 17:50: Sodium 143, Potassium 3.6, Chloride 106, Carbon Dioxide 31.0, Anion Gap 6, BUN 14, Creatinine 1.08 H, Estim Creat Clear Calc 34.68, Est GFR ( MDRD) Af Amer 62, Est GFR (MDRD) Non-Af 52 L, BUN/Creatinine Ratio 13.0, Glucose 89, Calcium 8.7 07/25/17 18:08: Urine Color Yellow, Urine Clarity Clear, Urine pH 6.0, Ur Specific [place] 1.010, Urine Protein Negative, Urine Glucose (UA) Normal, Urine Ketones Negative, Urine Occult Blood 150 H, Urine Nitrite Negative, Urine Bilirubin Negative, Urine Urobilinogen Normal, Ur Leukocyte Esterase Negative, Urine RBC 10-25 SEEN, Urine WBC 0 SEEN, Ur Squamous Epith Cells 0-5 SEEN, Urine Bacteria 0 SEEN, Urine Mucus 3+ [] Code Visit OBSV E&M: 21602 Initial observation care L3
--- NOTE | 2017-07-25 21:00 | NURSING ---
Family reported that pt sometimes has problems swallowing food. This RN completed a dysphagia screen, pt passed. While giving pt night time medication pt had issues swallowing pills. pt was unable to get pills down with just water, but was able to with medication in applesauce. Family requested pt have Barium swallowing test completed while here because pt will not come in as outpatient for it. This RN informed family that pt can be made NPO and a consult for speech for follow up. notified.
[2017-07-25] MEDS: 0.9% Normal Saline 1,000 ML 75 ML IV (21:03)
[2017-07-25] MEDS: Atorvastatin Calcium 10 MG Tablet PO (21:03)
[2017-07-25] MEDS: Memantine Hydrochloride 10 MG Tablet PO (21:03)
[2017-07-25 23:00] LABS: Bedside Glucose 101 mg/dL (70-110)
[2017-07-26] VITALS (9 sets, daily range): BP systolic 151–163; BP diastolic 58–78; PULSE 54–64; RESP 16–18; TEMP 36.4–37.1; O2SAT 93–98
[2017-07-26 06:35] LABS: Bedside Glucose 90 mg/dL (70-110)
--- NOTE | 2017-07-26 10:27 | CASEMGMT ---
Social Work Assessment Referral Date: 07/26/2017 Date of Assessment: 07/26/2017 Reason for consult: Possible placement at discharge Informant: admitting Personal status: SW met with pt to complete initial assessment. Pt is alert and orientated x3. SW introduced self and role at [facility]. Pt states that she lives in a two story home with her . Pt states that she has about four steps to enter her home and states that before becoming dizzy she was able to complete steps. Pt states that her is able to assist at home and states that her daughter and grandchildren check in with her when needed. DME include cane and grab bars. Pt states that she was previously independent with ADLs and states that she is able to drive. Pt states that her and her will drive to [place], to get groceries, and to congregational. Pt states that she would like to home at discharge. Pt gave this worker permission to call her daughter Barbara to discuss discharge plans. Substance Abuse Hx: Pt denied Mental Health Hx: Pt denied SW met with pt's and granddaughter in room with pt. Pt's and granddaughter states that pt will need placement at discharge. SW informed pt's and granddaughter that pt is currently observation status and that if pt discharges with observation SNF placement will be private pay. Pt's granddaughter states that she was informed that the doctor will be admitting pt to inpatient and that they will keep her three midnights for Medicare. SW placed a call to pt's daughter Barbara. Barbara states that the plan is for to go to placement and that she would like a referral sent to [facility]. PEREZ faxed referral to [facility]. PEREZ will send updated clinicals to [facility] when available. SW will continue to follow along to assist with discharge. Plan: [facility] pending acceptance Jenise Cowart HEALTH PROGRAM SPECIALIST, UTILITY WORKER [place]
[2017-07-26] MEDS: Donepezil HCl 10 MG Tablet PO (10:35)
[2017-07-26] MEDS: Atenolol 25 MG Tablet PO (10:35)
[2017-07-26] MEDS: Memantine Hydrochloride 10 MG Tablet PO ×2 (10:36→21:19)
--- NOTE | 2017-07-26 11:44 | CASEMGMT ---
Social Work Note PEREZ received a call from Rosa at [facility] stating that she is able to accept pt. PEREZ informed Rosa that pt is still in observation and that it sounded like pt should be admitting to inpatient today. PEREZ informed Rosa that pt's third midnight stay will be Sunday night and pt should be ready for discharge on Sunday. Rosa states understanding. Plan: [facility] on Sunday Jenise Cowart MSW, FUNDS DEVELOPMENT DIRECTOR
[2017-07-26 12:36] LABS: Bedside Glucose 101 mg/dL (70-110)
[2017-07-26] MEDS: diazePAM 2 MG Tablet PO ×2 (13:35→21:19)
--- NOTE | 2017-07-26 15:37 | CASEMGMT ---
Social Work Note PEREZ placed a call to pt's daughter Barbara updating her that [facility] has accepted pt and that pt is now inpatient. PEREZ explained to Barbara that pt's third midnight stay will be Sunday and pt should be able to discharge to [facility] Sunday pending medically cleared. Barbara states understanding. Barbara states that she has a concern with pt currently receiving Valium. Barbara states that pt does better when she if off Valium and is wondering if pt can receive other medication for her dizziness. This worker informed Barbara that this worker will relay the message to pt's nurse. PEREZ updated ELSA Calix of Barbara's concerns regarding Valium for pt. RN Fifi states that she will talk to the doctor. Plan: [facility] Sunday Jenise Cowart MSW, BATTERY TECHNICIAN
--- NOTE | 2017-07-26 17:33 | PN_ITS ---
Patient Problems: Active and Suspected Problems Near syncope (Acute) Vertigo (Acute) Subjective: Patient was seen and examined today, she still complains of vertiginous symptoms with a feeling that the room is spinning. I talked with her granddaughter and who was in the room today, they both agree that she needs to go to a group home facility-they are not able to take care of her at home with her present symptoms. I made the patient a full admission today and added Valium 2 mg 3 times daily to her regimen. - Physical Exam General: Alert, Cooperative, No apparent distress, Well developed, Well nourished, Confused HEENT: Atraumatic, PERRLA, EOMI Oral: Moist Mucosa Neck: Supple, No Nuchal Rigidity, Trachea Midline, Thyroid Normal Size and Texture Lungs: Clear to auscultation, Normal air movement, No rhonchi, No wheeze, No rales Cardiovascular: Regular rate, Regular Rhythm, Normal S1, Normal S2, No murmurs, No Ectopic Activity, PMI Normal, No rub noted, No Gallop Abdomen: Bowel Sounds Present, Soft, Non Tender, Non-Distended, No hernias noted Extremities: No clubbing, No cyanosis, No edema, Capillary Refill Less than 3 Seconds Skin: No rashes, No breakdown Musculoskeletal: No Tenderness to Palpation of Joints or Extremities Lymphatic: No Cervical, Supraclavicular, or Inguinal Adenopathy Neurological: Cranial nerves II-XII grossly intact, Neuro grossly intact, Sensory exam intact to light touch and pain, Coordination normal Psych/Mental Status: Normal Affect, Appropriate, Alert and oriented to time, place, person, mood and affect Vital Signs Temp Pulse Resp BP Pulse Ox 97.6 F L 61 16 152/66 H 96 07/26/17 16:12 07/26/17 16:12 07/26/17 16:12 07/26/17 16:12 07/26/17 16:12 Oxygen Delivery Method Room Air Medical Necessity - Tobacco Use Smoking Status: Never smoker Assessment/Plan Active and Suspected Problems Near syncope (Acute) Vertigo (Acute) #1 vertigo-etiology unclear, possibly from recent concussion, continue PT and OT , patient will need placement in group home facility for rehab #2 Alzheimer's dementia #3 hypertension Code Visit Inpatient E&M: 62990 Subs Hosp L2
[2017-07-26] MEDS: Enoxaparin 40 MG/0.4 ML Syringe SC (18:10)
[2017-07-26] MEDS: Atorvastatin Calcium 10 MG Tablet PO (21:19)
[2017-07-27 03:13] VITALS: BP 167/70; PULSE 69; RESP 18; TEMP 36.9; O2SAT 95
[2017-07-27] MEDS: diazePAM 2 MG Tablet PO (06:13)
--- NOTE | 2017-07-27 08:39 | CASEMGMT ---
Addendum entered by Jenise Cowart 07/27/17 14:48: Transportation form on chart. Original Note: Addendum entered by Jenise Cowart 07/27/17 12:23: [facility] completed in [facility]. Original Note: Social Work Note PEREZ placed a call to Rosa at [facility] updating her that pt was admitted inpatient yesterday and pt's third midnight will be Sunday night and if medically cleared pt will go to [facility] on Sunday. PEREZ faxed updated clinicals to Rosa at [facility]. Green sheet on chart. Plan: [facility] Sunday Jenise Cowart MSW, MONUMENT MASON
[2017-07-27 09:32] VITALS: BP 139/70; PULSE 58; RESP 18; TEMP 36.8; O2SAT 95
--- NOTE | 2017-07-27 09:33 | NURSING ---
grand daughter requesting to have a different dr for her grandmother. notified dr byrne of family request. dr byrne informed grand daughter that there will be a different dr tomorrow.
[2017-07-27] MEDS: Memantine Hydrochloride 10 MG Tablet PO ×2 (09:40→21:47)
[2017-07-27] MEDS: Donepezil HCl 10 MG Tablet PO (09:40)
[2017-07-27] MEDS: Enoxaparin 40 MG/0.4 ML Syringe SC (09:40)
[2017-07-27] MEDS: Atenolol 25 MG Tablet PO (09:40)
[2017-07-27 14:02] VITALS: BP 138/65; PULSE 58; RESP 18; TEMP 36.6; O2SAT 96
--- NOTE | 2017-07-27 16:21 | PCM.PROGNOTE ---
Patient Problems: Active and Suspected Problems Near syncope (Acute) Vertigo (Acute) Subjective: Patient seen and examined today, patient does not voice any complaints this examiner of dizziness or lightheadedness. Patient's granddaughter was in the room this morning, she requested that the patient be taken off Valium-she feels that it may be sedating the patient, I see no evidence of any sedation at this time however. I told her we could stop the Valium, she wondered if the patient could be placed on Antivert, I told her this was an antihistamine and could cause sleepiness with the patient and I did not feel the patient should be on this. She also wondered whether the patient would need an MRI, when I asked the granddaughter why she thought she needed an MRI, she thought that the ears could be examined more thoroughly if she had an MRI-I told her that this was not so. Patient's granddaughter also stated the patient had behavioral problems last night, I told her it was probably due to her dementia and , she wondered if the patient could have anything for sleep at night, I told her that if I placed her on something for sleep it would sedate her during the day, the granddaughter wondered if she could be on melatonin, I told her that she could take melatonin and wrote for 10 mg at 7 PM nightly. After I left the room, the patient's granddaughter made a comment that she would like the patient to have a new physician, I went back in and talk to the granddaughter and told her that as of 07/28/17, the patient would have a new physician-the granddaughter stated that she was okay with this. I also called the patient's daughter, patient's daughter requested that I examined the patient's ear canals and tympanic membranes, she felt that cerumen could be causing patient's dizziness-I told her this was not possible, I examined the patient's ear canals and tympanic membranes with an otoscope, there is absolutely no sign of any cerumen in either ear canal and both tympanic membranes appeared normal. I then asked the patient at the same time, are you having lightheadedness or dizziness she stated no. I also talked to the patient's daughter inquiring whether she felt the patient needed to see a neurologist or an ENT physician, the patient's daughter stated no. I also asked the daughter whether she wanted the patient to have an MRI-patient's daughter stated no. The patient's daughter further stated that the patient has had a history of chronic dizziness, I asked her why she was concerned about the patient's current dizziness, the granddaughter stated that she felt the dizziness was worse this time. I feel that the patient probably has a component of anxiety due to her dementia, the patient's daughter stated that the patient has anxiety but she states that she does not feel she is particularly anxious at this time. We are currently awaiting approval for placement in a [place] facility, I think the patient's family is somewhat overbearing, most of my communication so far has been with the patient's daughter and granddaughter who seem to be directing treatment at this time. I have had very little conversation with the patient's . - Physical Exam General: Alert, Cooperative, No apparent distress, Well developed, Well nourished, Confused HEENT: Atraumatic, PERRLA, EOMI, Normocephalic, TM's Clear, EAC Clear Oral: Moist Mucosa Neck: Supple, No JVD, No Nuchal Rigidity, Trachea Midline, Thyroid Normal Size and Texture Lungs: Clear to auscultation, Normal air movement, No rhonchi, No wheeze, No rales Cardiovascular: Regular rate, Regular Rhythm, Normal S1, Normal S2, No murmurs, No Ectopic Activity, PMI Normal, No rub noted, No Gallop Abdomen: Bowel Sounds Present, Soft, Non Tender, Non-Distended, No hernias noted Extremities: No clubbing, No cyanosis, No edema, Capillary Refill Less than 3 Seconds Skin: No rashes, No breakdown Musculoskeletal: No Tenderness to Palpation of Joints or Extremities Neurological: Cranial nerves II-XII grossly intact, Neuro grossly intact, Sensory exam intact to light touch and pain Psych/Mental Status: Flat Affect, - - Patient is alert and has confusion, she is not agitated Vital Signs Temp Pulse Resp BP Pulse Ox 97.9 F 58 L 18 138/65 H 96 07/27/17 14:02 07/27/17 14:02 07/27/17 14:02 07/27/17 14:02 07/27/17 14:02 Oxygen Delivery Method Room Air Weight: 63.8 kg Intake and Output for Last 24 Hours 07/25/17 07/26/17 07/27/17 23:59 23:59 23:59 Intake Total 300 / 1146 540 / 540 Output Total 725 / 725 Balance 300 / 546 -185 / -185 Medical Necessity - Tobacco Use Smoking Status: Never smoker Assessment/Plan Active and Suspected Problems Near syncope (Acute) Vertigo (Acute) #1 vertigo-etiology unclear, possibly from recent concussion, continue PT and OT, patient will need placement in [place] for [place] #2 Alzheimer's dementia #3 hypertension #4 anxiety #5 status post concussion-07/22/17 #6 occipital scalp laceration-07/22/17 I had the patient's scalp sutures removed today, the occipital scalp wound she suffered approximately 5 days ago appears to be healing adequately and there is no evidence of any redness or drainage from the area. Code Visit Inpatient E&M: 93935 Subs Hosp L2
--- NOTE | 2017-07-27 16:30 | PN_ITS ---
Patient Problems: Active and Suspected Problems Near syncope (Acute) Vertigo (Acute) Subjective: Patient seen and examined today, patient does not voice any complaints this examiner of dizziness or lightheadedness. Patient's granddaughter was in the room this morning, she requested that the patient be taken off Valium-she feels that it may be sedating the patient, I see no evidence of any sedation at this time however. I told her we could stop the Valium, she wondered if the patient could be placed on Antivert, I told her this was an antihistamine and could cause sleepiness with the patient and I did not feel the patient should be on this. She also wondered whether the patient would need an MRI, when I asked the granddaughter why she thought she needed an MRI, she thought that the ears could be examined more thoroughly if she had an MRI-I told her that this was not so. Patient's granddaughter also stated the patient had behavioral problems last night, I told her it was probably due to her dementia and , she wondered if the patient could have anything for sleep at night, I told her that if I placed her on something for sleep it would sedate her during the day, the granddaughter wondered if she could be on melatonin, I told her that she could take melatonin and wrote for 10 mg at 7 PM nightly. After I left the room, the patient's granddaughter made a comment that she would like the patient to have a new physician, I went back in and talk to the granddaughter and told her that as of 07/28/17, the patient would have a new physician-the granddaughter stated that she was okay with this. I also called the patient's daughter, patient's daughter requested that I examined the patient 's ear canals and tympanic membranes, she felt that cerumen could be causing patient's dizziness-I told her this was not possible, I examined the patient's ear canals and tympanic membranes with an otoscope, there is absolutely no sign of any cerumen in either ear canal and both tympanic membranes appeared normal. I then asked the patient at the same time, are you having lightheadedness or dizziness she stated no. I also talked to the patient's daughter inquiring whether she felt the patient needed to see a neurologist or an ENT physician, the patient's daughter stated no. I also asked the daughter whether she wanted the patient to have an MRI-patient's daughter stated no. The patient' s daughter further stated that the patient has had a history of chronic dizziness, I asked her why she was concerned about the patient's current dizziness, the granddaughter stated that she felt the dizziness was worse this time. I feel that the patient probably has a component of anxiety due to her dementia, the patient's daughter stated that the patient has anxiety but she states that she does not feel she is particularly anxious at this time. We are currently awaiting approval for placement in a correction facility, I think the patient's family is somewhat overbearing, most of my communication so far has been with the patient's daughter and granddaughter who seem to be directing treatment at this time. I have had very little conversation with the patient's . - Physical Exam General: Alert, Cooperative, No apparent distress, Well developed, Well nourished, Confused HEENT: Atraumatic, PERRLA, EOMI, Normocephalic, TM's Clear, EAC Clear Oral: Moist Mucosa Neck: Supple, No JVD, No Nuchal Rigidity, Trachea Midline, Thyroid Normal Size and Texture Lungs: Clear to auscultation, Normal air movement, No rhonchi, No wheeze, No rales Cardiovascular: Regular rate, Regular Rhythm, Normal S1, Normal S2, No murmurs, No Ectopic Activity, PMI Normal, No rub noted, No Gallop Abdomen: Bowel Sounds Present, Soft, Non Tender, Non-Distended, No hernias noted Extremities: No clubbing, No cyanosis, No edema, Capillary Refill Less than 3 Seconds Skin: No rashes, No breakdown Musculoskeletal: No Tenderness to Palpation of Joints or Extremities Neurological: Cranial nerves II-XII grossly intact, Neuro grossly intact, Sensory exam intact to light touch and pain Psych/Mental Status: Flat Affect, - - Patient is alert and has confusion, she is not agitated Vital Signs Temp Pulse Resp BP Pulse Ox 97.9 F 58 L 18 138/65 H 96 07/27/17 14:02 07/27/17 14:02 07/27/17 14:02 07/27/17 14:02 07/27/17 14:02 Oxygen Delivery Method Room Air Weight: 63.8 kg Intake and Output for Last 24 Hours 07/25/17 07/26/17 07/27/17 23:59 23:59 23:59 Intake Total 300 / 1146 540 / 540 Output Total 725 / 725 Balance 300 / 546 -185 / -185 Medical Necessity - Tobacco Use Smoking Status: Never smoker Assessment/Plan Active and Suspected Problems Near syncope (Acute) Vertigo (Acute) #1 vertigo-etiology unclear, possibly from recent concussion, continue PT and OT , patient will need placement in correction facility for rehab #2 Alzheimer's dementia #3 hypertension #4 anxiety #5 status post concussion-07/22/17 #6 occipital scalp laceration-07/22/17 I had the patient's scalp sutures removed today, the occipital scalp wound she suffered approximately 5 days ago appears to be healing adequately and there is no evidence of any redness or drainage from the area. Code Visit Inpatient E&M: 97855 Subs Hosp L2
[2017-07-27] MEDS: MELATONIN 10 MG TABLET PO (18:41)
[2017-07-27 21:40] VITALS: BP 142/72; PULSE 65; RESP 16; TEMP 37; O2SAT 96
[2017-07-27] MEDS: Atorvastatin Calcium 10 MG Tablet PO (21:47)
[2017-07-28 02:32] VITALS: BP 128/78; PULSE 70; RESP 16; TEMP 36.6; O2SAT 96
[2017-07-28] MEDS: 0.9% NaCl Peripheral Flush Adult/Peds IV (06:23)
[2017-07-28 08:10] VITALS: BP 155/73; PULSE 60; RESP 18; TEMP 36.6; O2SAT 98
[2017-07-28] MEDS: Donepezil HCl 10 MG Tablet PO (08:11)
[2017-07-28] MEDS: Atenolol 25 MG Tablet PO (08:12)
[2017-07-28] MEDS: Enoxaparin 40 MG/0.4 ML Syringe SC (08:12)
[2017-07-28] MEDS: Memantine Hydrochloride 10 MG Tablet PO ×2 (08:12→20:51)
--- NOTE | 2017-07-28 11:20 | PCM.PN.HOSP ---
Patient Problems: Active and Suspected Problems Near syncope (Acute) Vertigo (Acute) Subjective: 71-year-old female with a history of hypertension and dementia was admitted with a complaint of dizziness, lightheadedness and vertigo. Is been managed for dizziness and vertigo. CT of the head and cervical spine were negative. She has remained stable and is awaiting placement. Patient seen and examined this morning. She has no complaints this morning. She feels well and states vertigo and dizziness has resolved. She denies any fever or chills, any cough or chest pain, any shortness of breath, any abdominal pain, any diarrhea vomiting. Review of systems otherwise negative. Awaiting placement in a residential. Vitals/I&O's: Vital Signs Temp Pulse Resp BP Pulse Ox 97.8 F 60 18 155/73 H 98 07/28/17 08:10 07/28/17 08:10 07/28/17 08:10 07/28/17 08:10 07/28/17 08:10 Oxygen Delivery Method Room Air Weight: 140 lb 10.479 oz Intake and Output for Last 24 Hours 07/26/17 07/27/17 07/28/17 23:59 23:59 23:59 Intake Total 300 / 1146 660 / 660 240 / 240 Output Total 725 / 725 400 / 400 Balance 300 / 546 -65 / -65 -160 / -160 General: Alert, Cooperative, No apparent distress HEENT: Atraumatic, PERRLA, EOMI, Normocephalic Oral: Moist Mucosa Neck: Supple, No JVD, Negative Carotid Bruits Lungs: Clear to auscultation, Normal air movement, No rhonchi, No wheeze Cardiovascular: Regular rate, Regular Rhythm, Normal S1, Normal S2, No murmurs Abdomen: Bowel Sounds Present, Soft, Non Tender, Non-Distended, No Hepato-splenomegaly Extremities: No clubbing, No cyanosis, No edema, Capillary Refill Less than 3 Seconds Skin: No rashes, No breakdown Musculoskeletal: No Tenderness to Palpation of Joints or Extremities Lymphatic: No Cervical, Supraclavicular, or Inguinal Adenopathy Neurological: Cranial nerves II-XII grossly intact Psych/Mental Status: Normal Affect Current Medications Al Hydroxide/Mg Hydroxide (Mylanta Ii) 30 ml PO Q6H PRN PRN PRN Reason: Gastric burning Atenolol (Tenormin (Beta Sai)) 25 mg PO DAILY [facility] Last Admin: 07/28/17 08:12 Dose: 25 mg Atorvastatin Calcium (Lipitor) 10 mg PO QHS [facility] Last Admin: 07/27/17 21:47 Dose: 10 mg Donepezil HCl (Aricept) 10 mg PO DAILY [facility] Last Admin: 07/28/17 08:11 Dose: 10 mg Enoxaparin Sodium (Lovenox) 40 mg SC DAILY@1000 [facility] Last Admin: 07/28/17 08:12 Dose: 40 mg Magnesium Hydroxide (Milk Of Magnesia) 30 ml PO DAILY PRN PRN PRN Reason: Constipation Melatonin (Melatonin) 10 mg PO 1900 [facility] Last Admin: 07/27/17 18:41 Dose: 10 mg Memantine (Namenda) 10 mg PO BID [facility] Last Admin: 07/28/17 08:12 Dose: 10 mg Ondansetron HCl (Zofran) 4 mg IV Q8H PRN PRN PRN Reason: NAUSEA Senna/Docusate Sodium (Senokot-S, Didi-Colace) 2 tablet PO BID PRN PRN Reason: constipation Sodium Chloride () 5 - 30 ml IV UD PRN PRN Reason: SALINE FLUSH Last Admin: 07/28/17 06:23 Dose: 10 ml Valsartan (Diovan) 160 mg PO DAILY [facility] Last Admin: 07/28/17 08:11 Dose: 160 mg Medical Necessity - Tobacco Use Smoking Status: Never smoker Assessment/Plan Active and Suspected Problems Near syncope (Acute) Vertigo (Acute) 81-year-old female with a history of dementia and hypertension presenting with a complaint of dizziness or impetigo. 1. Topical: Resolving. Etiology was unclear. I documented the patient had any Romy-Hallpike maneuver done. However since her vertigo has resolved this morning, will not do [place]-Hallpike maneuver. Having PT OT. Awaiting placement. 2. Alzheimer's dementia: On Namenda and Aricept. 3. Hypertension: Controlled. On Diovan. 4. Insomnia: Per previous documentation, family was concerned about patient's inability to sleep. Patient was started on melatonin. Per patient this morning she was able to sleep well. Will monitor. 5. Occipital scalp laceration: resolving. sutures taken out 1 day ago. is healing well. 6. DVT prophylaxis: lovenox Disposition: awaiting placement Code Visit Inpatient E&M: 19246 Subs Hosp L2
--- NOTE | 2017-07-28 11:23 | PN_ITS ---
Patient Problems: Active and Suspected Problems Near syncope (Acute) Vertigo (Acute) Subjective: 71-year-old female with a history of hypertension and dementia was admitted with a complaint of dizziness, lightheadedness and vertigo. Is been managed for dizziness and vertigo. CT of the head and cervical spine were negative. She has remained stable and is awaiting placement. Patient seen and examined this morning. She has no complaints this morning. She feels well and states vertigo and dizziness has resolved. She denies any fever or chills, any cough or chest pain, any shortness of breath, any abdominal pain, any diarrhea vomiting. Review of systems otherwise negative. Awaiting placement in a [facility]. Vitals/I&O's: Vital Signs Temp Pulse Resp BP Pulse Ox 97.8 F 60 18 155/73 H 98 07/28/17 08:10 07/28/17 08:10 07/28/17 08:10 07/28/17 08:10 07/28/17 08:10 Oxygen Delivery Method Room Air Weight: 140 lb 10.479 oz Intake and Output for Last 24 Hours 07/26/17 07/27/17 07/28/17 23:59 23:59 23:59 Intake Total 300 / 1146 660 / 660 240 / 240 Output Total 725 / 725 400 / 400 Balance 300 / 546 -65 / -65 -160 / -160 General: Alert, Cooperative, No apparent distress HEENT: Atraumatic, PERRLA, EOMI, Normocephalic Oral: Moist Mucosa Neck: Supple, No JVD, Negative Carotid Bruits Lungs: Clear to auscultation, Normal air movement, No rhonchi, No wheeze Cardiovascular: Regular rate, Regular Rhythm, Normal S1, Normal S2, No murmurs Abdomen: Bowel Sounds Present, Soft, Non Tender, Non-Distended, No Hepato- splenomegaly Extremities: No clubbing, No cyanosis, No edema, Capillary Refill Less than 3 Seconds Skin: No rashes, No breakdown Musculoskeletal: No Tenderness to Palpation of Joints or Extremities Lymphatic: No Cervical, Supraclavicular, or Inguinal Adenopathy Neurological: Cranial nerves II-XII grossly intact Psych/Mental Status: Normal Affect Current Medications Al Hydroxide/Mg Hydroxide (Mylanta Ii) 30 ml PO Q6H PRN PRN PRN Reason: Gastric burning Atenolol (Tenormin (Beta Sai)) 25 mg PO DAILY [facility] Last Admin: 07/28/17 08:12 Dose: 25 mg Atorvastatin Calcium (Lipitor) 10 mg PO QHS [facility] Last Admin: 07/27/17 21:47 Dose: 10 mg Donepezil HCl (Aricept) 10 mg PO DAILY [facility] Last Admin: 07/28/17 08:11 Dose: 10 mg Enoxaparin Sodium (Lovenox) 40 mg SC DAILY@1000 [facility] Last Admin: 07/28/17 08:12 Dose: 40 mg Magnesium Hydroxide (Milk Of Magnesia) 30 ml PO DAILY PRN PRN PRN Reason: Constipation Melatonin (Melatonin) 10 mg PO 1900 [facility] Last Admin: 07/27/17 18:41 Dose: 10 mg Memantine (Namenda) 10 mg PO BID [facility] Last Admin: 07/28/17 08:12 Dose: 10 mg Ondansetron HCl (Zofran) 4 mg IV Q8H PRN PRN PRN Reason: NAUSEA Senna/Docusate Sodium (Senokot-S, Didi-Colace) 2 tablet PO BID PRN PRN Reason: constipation Sodium Chloride () 5 - 30 ml IV UD PRN PRN Reason: SALINE FLUSH Last Admin: 07/28/17 06:23 Dose: 10 ml Valsartan (Diovan) 160 mg PO DAILY [facility] Last Admin: 07/28/17 08:11 Dose: 160 mg Medical Necessity - Tobacco Use Smoking Status: Never smoker Assessment/Plan Active and Suspected Problems Near syncope (Acute) Vertigo (Acute) 81-year-old female with a history of dementia and hypertension presenting with a complaint of dizziness or impetigo. 1. Topical: Resolving. Etiology was unclear. I documented the patient had any [place]-Hallpike maneuver done. However since her vertigo has resolved this morning, will not do Romy-Hallpike maneuver. Having PT OT. Awaiting placement. 2. Alzheimer's dementia: On Namenda and Aricept. 3. Hypertension: Controlled. On Diovan. 4. Insomnia: Per previous documentation, family was concerned about patient's inability to sleep. Patient was started on melatonin. Per patient this morning she was able to sleep well. Will monitor. 5. Occipital scalp laceration: resolving. sutures taken out 1 day ago. is healing well. 6. DVT prophylaxis: lovenox Disposition: awaiting placement Code Visit Inpatient E&M: 07426 Subs Hosp L2
[2017-07-28 14:30] VITALS: BP 140/73; PULSE 60; RESP 16; TEMP 37; O2SAT 94
[2017-07-28 20:26] VITALS: BP 153/80; PULSE 68; RESP 18; TEMP 37.4; O2SAT 94
[2017-07-28] MEDS: Acetaminophen 325 MG Tablet 650 MG PO (20:52)
[2017-07-28] MEDS: Atorvastatin Calcium 10 MG Tablet PO (20:52)
[2017-07-28] MEDS: MELATONIN 10 MG TABLET PO (20:52)
[2017-07-28 20:58] VITALS: PULSE 68; RESP 18; O2SAT 94
[2017-07-29 03:00] VITALS: BP 129/67; PULSE 64; RESP 18; TEMP 36.6; O2SAT 97
[2017-07-29 09:00] VITALS: BP 124/74; PULSE 73; PULSE 79; RESP 18; TEMP 36.7; TEMP 36.9; O2SAT 95; O2SAT 97
[2017-07-29] MEDS: Donepezil HCl 10 MG Tablet PO (09:49)
[2017-07-29] MEDS: Memantine Hydrochloride 10 MG Tablet PO (09:49)
[2017-07-29] MEDS: Enoxaparin 40 MG/0.4 ML Syringe SC (09:49)
[2017-07-29] MEDS: Atenolol 25 MG Tablet PO (09:49)
--- NOTE | 2017-07-29 09:51 | PCM.PN.HOSP ---
Subjective: 81-year-old female with a history of hypertension and dementia was admitted with a complaint of dizziness, lightheadedness and vertigo. Is been managed for dizziness and vertigo. CT of the head and cervical spine were negative. She has remained stable and is awaiting placement. Patient seen and examined this morning. She has no complaints this morning. She feels well. She denies any fever or chills, any cough or chest pain, any shortness of breath, any abdominal pain, any diarrhea vomiting. Review of systems otherwise negative. Awaiting placement in a custodial. Vitals/I&O's: Vital Signs Temp Pulse Resp BP Pulse Ox 98 F 64 18 129/67 H 97 07/29/17 03:00 07/29/17 03:00 07/29/17 03:00 07/29/17 03:00 07/29/17 03:00 Oxygen Delivery Method Room Air Weight: 140 lb 10.479 oz Intake and Output for Last 24 Hours 07/27/17 07/28/17 07/29/17 23:59 23:59 23:59 Intake Total 660 / 660 240 / 240 50 / 50 Output Total 725 / 725 400 / 400 700 / 700 Balance -65 / -65 -160 / -160 -650 / -650 General: Alert, Oriented x3, Cooperative, No apparent distress HEENT: Atraumatic, PERRLA, EOMI, Normocephalic Oral: Moist Mucosa Neck: Supple, No JVD, Negative Carotid Bruits Lungs: Clear to auscultation, Normal air movement, No rhonchi, No wheeze, No rales Cardiovascular: Regular rate, Regular Rhythm, Normal S1, Normal S2, No murmurs Abdomen: Bowel Sounds Present, Soft, Non Tender, Non-Distended, No Hepato-splenomegaly Extremities: No clubbing, No cyanosis, No edema, Capillary Refill Less than 3 Seconds Skin: No rashes, No breakdown Musculoskeletal: No Tenderness to Palpation of Joints or Extremities Lymphatic: No Cervical, Supraclavicular, or Inguinal Adenopathy Neurological: Cranial nerves II-XII grossly intact, Neuro grossly intact Psych/Mental Status: Normal Affect, Appropriate, Alert and oriented to time, place, person, mood and affect Current Medications Acetaminophen (Tylenol) 650 mg PO Q4H PRN PRN PRN Reason: PAIN Last Admin: 07/28/17 20:52 Dose: 650 mg Al Hydroxide/Mg Hydroxide (Mylanta Ii) 30 ml PO Q6H PRN PRN PRN Reason: Gastric burning Atenolol (Tenormin (Beta Sai)) 25 mg PO DAILY [facility] Last Admin: 07/28/17 08:12 Dose: 25 mg Atorvastatin Calcium (Lipitor) 10 mg PO QHS [facility] Last Admin: 07/28/17 20:52 Dose: 10 mg Donepezil HCl (Aricept) 10 mg PO DAILY [facility] Last Admin: 07/28/17 08:11 Dose: 10 mg Enoxaparin Sodium (Lovenox) 40 mg SC DAILY@1000 [facility] Last Admin: 07/28/17 08:12 Dose: 40 mg Magnesium Hydroxide (Milk Of Magnesia) 30 ml PO DAILY PRN PRN PRN Reason: Constipation Melatonin (Melatonin) 10 mg PO 1900 [facility] Last Admin: 07/28/17 20:52 Dose: 10 mg Memantine (Namenda) 10 mg PO BID [facility] Last Admin: 07/28/17 20:51 Dose: 10 mg Ondansetron HCl (Zofran) 4 mg IV Q8H PRN PRN PRN Reason: NAUSEA Senna/Docusate Sodium (Senokot-S, Didi-Colace) 2 tablet PO BID PRN PRN Reason: constipation Sodium Chloride () 5 - 30 ml IV UD PRN PRN Reason: SALINE FLUSH Last Admin: 07/28/17 06:23 Dose: 10 ml Valsartan (Diovan) 160 mg PO DAILY [facility] Last Admin: 07/28/17 08:11 Dose: 160 mg Medical Necessity - Tobacco Use Smoking Status: Never smoker Assessment/Plan 81-year-old female with a history of dementia and hypertension admitted with a complaint of dizziness and vertigo. 1. Vertigo: Resolved. Feels better today. Awaiting placement in SNF. 2. Alzheimer's dementia: On Namenda and Aricept. 3. Hypertension: Controlled. On Diovan. 4. Insomnia: stable and resolving. Patient says she had a good night's sleep. 5. Occipital scalp laceration: resolving. sutures taken out 2days ago. is healing well. 6. DVT prophylaxis: lovenox Disposition: DC to custodial today; precert received. This note was generated with Dragon dictation software. It may contain incorrect words, spelling, and punctuation that were not noted in checking the note before signing. Code Visit Inpatient E&M: 20321 Subs Hosp L2
--- NOTE | 2017-07-29 09:54 | PN_ITS ---
Subjective: 81-year-old female with a history of hypertension and dementia was admitted with a complaint of dizziness, lightheadedness and vertigo. Is been managed for dizziness and vertigo. CT of the head and cervical spine were negative. She has remained stable and is awaiting placement. Patient seen and examined this morning. She has no complaints this morning. She feels well. She denies any fever or chills, any cough or chest pain, any shortness of breath, any abdominal pain, any diarrhea vomiting. Review of systems otherwise negative. Awaiting placement in a [facility]. Vitals/I&O's: Vital Signs Temp Pulse Resp BP Pulse Ox 98 F 64 18 129/67 H 97 07/29/17 03:00 07/29/17 03:00 07/29/17 03:00 07/29/17 03:00 07/29/17 03:00 Oxygen Delivery Method Room Air Weight: 140 lb 10.479 oz Intake and Output for Last 24 Hours 07/27/17 07/28/17 07/29/17 23:59 23:59 23:59 Intake Total 660 / 660 240 / 240 50 / 50 Output Total 725 / 725 400 / 400 700 / 700 Balance -65 / -65 -160 / -160 -650 / -650 General: Alert, Oriented x3, Cooperative, No apparent distress HEENT: Atraumatic, PERRLA, EOMI, Normocephalic Oral: Moist Mucosa Neck: Supple, No JVD, Negative Carotid Bruits Lungs: Clear to auscultation, Normal air movement, No rhonchi, No wheeze, No rales Cardiovascular: Regular rate, Regular Rhythm, Normal S1, Normal S2, No murmurs Abdomen: Bowel Sounds Present, Soft, Non Tender, Non-Distended, No Hepato- splenomegaly Extremities: No clubbing, No cyanosis, No edema, Capillary Refill Less than 3 Seconds Skin: No rashes, No breakdown Musculoskeletal: No Tenderness to Palpation of Joints or Extremities Lymphatic: No Cervical, Supraclavicular, or Inguinal Adenopathy Neurological: Cranial nerves II-XII grossly intact, Neuro grossly intact Psych/Mental Status: Normal Affect, Appropriate, Alert and oriented to time, place, person, mood and affect Current Medications Acetaminophen (Tylenol) 650 mg PO Q4H PRN PRN PRN Reason: PAIN Last Admin: 07/28/17 20:52 Dose: 650 mg Al Hydroxide/Mg Hydroxide (Mylanta Ii) 30 ml PO Q6H PRN PRN PRN Reason: Gastric burning Atenolol (Tenormin (Beta Sai)) 25 mg PO DAILY [facility] Last Admin: 07/28/17 08:12 Dose: 25 mg Atorvastatin Calcium (Lipitor) 10 mg PO QHS [facility] Last Admin: 07/28/17 20:52 Dose: 10 mg Donepezil HCl (Aricept) 10 mg PO DAILY [facility] Last Admin: 07/28/17 08:11 Dose: 10 mg Enoxaparin Sodium (Lovenox) 40 mg SC DAILY@1000 [facility] Last Admin: 07/28/17 08:12 Dose: 40 mg Magnesium Hydroxide (Milk Of Magnesia) 30 ml PO DAILY PRN PRN PRN Reason: Constipation Melatonin (Melatonin) 10 mg PO 1900 [facility] Last Admin: 07/28/17 20:52 Dose: 10 mg Memantine (Namenda) 10 mg PO BID [facility] Last Admin: 07/28/17 20:51 Dose: 10 mg Ondansetron HCl (Zofran) 4 mg IV Q8H PRN PRN PRN Reason: NAUSEA Senna/Docusate Sodium (Senokot-S, Didi-Colace) 2 tablet PO BID PRN PRN Reason: constipation Sodium Chloride () 5 - 30 ml IV UD PRN PRN Reason: SALINE FLUSH Last Admin: 07/28/17 06:23 Dose: 10 ml Valsartan (Diovan) 160 mg PO DAILY [facility] Last Admin: 07/28/17 08:11 Dose: 160 mg Medical Necessity - Tobacco Use Smoking Status: Never smoker Assessment/Plan 81-year-old female with a history of dementia and hypertension admitted with a complaint of dizziness and vertigo. 1. Vertigo: Resolved. Feels better today. Awaiting placement in SNF. 2. Alzheimer's dementia: On Namenda and Aricept. 3. Hypertension: Controlled. On Diovan. 4. Insomnia: stable and resolving. Patient says she had a good night's sleep. 5. Occipital scalp laceration: resolving. sutures taken out 2days ago. is healing well. 6. DVT prophylaxis: lovenox Disposition: DC to [facility] today; precert received. This note was generated with Dragon dictation software. It may contain incorrect words, spelling, and punctuation that were not noted in checking the note before signing. Code Visit Inpatient E&M: 12287 Subs Hosp L2
--- NOTE | 2017-07-29 11:25 | PCM.DC ---
- Discharge Diagnoses Current Active Problems: Current Active and Chronic Problems Near syncope (Acute) Vertigo (Acute) You will use the following diet at home:: Cardiac Your food should be the consistency of: Regular Your liquids should be the consistency of: Regular/Thin Discharge Activity: Return to Normal Activity, - - fall precautions May resume sexual activity in: No Restrictions Weight Bearing Status: Weight bearing as tolerated Call your doctor if you observe: Dizziness Allergies/Adverse Reactions: Allergies No Known Allergies Allergy (Verified 07/25/17 17:18) Medications to take at Discharge Atenolol [Tenormin (beta ginette)] 25 mg PO DAILY 02/15/16 Simvastatin [Zocor] 20 mg PO QHS 02/15/16 Donepezil HCl [Aricept] 10 mg PO DAILY 07/25/17 Memantine Hydrochloride [Namenda] 10 mg PO BID 07/25/17 Valsartan [Diovan] 160 mg PO DAILY 07/25/17 Primary Care Physician: Lexa Brooks DO [Primary Care Provider] - Please follow up with your Primary Care Physician in: two weeks
--- NOTE | 2017-07-29 11:31 | PCM.TXEXTCAR ---
- Diet regular diet - Routine Orders/Code Status Enema Type: Fleetz Enema Frequency: Daily PRN Code Status: Full Code - Wound(s) LFA Wound Type: Skin Tear RFA Wound Type: Skin Tear Right elbow Wound Type: Skin Tear right head Wound Type: Laceration - Therapies Weight Bearing: Full weight bearing Physical Therapy: Eval and Treat Occupational Therapy: Eval and Treat - Problem/Diagnosis (1) Fall Status: Acute Current Visit: No (2) Near syncope Status: Acute Current Visit: Yes (3) Vertigo Status: Acute Current Visit: Yes (4) Dementia Status: Chronic Current Visit: No - Allergies/Procedures Done in Hospital Allergies/Adverse Reactions: Allergies No Known Allergies Allergy (Verified 07/25/17 17:18) Procedures: None - Type of Care/Length of Stay Estimated LOS: Convalescent Care Less Than 30 days Type of Care Needed: Skilled Rehab Potential: Good Prognosis: Good - Additional Orders/Day of Discharge Additional Orders: Fall precautions H&P will serve as current which was dated: 07/25/17 Day of Discharge: 07/29/17 - Dietary and Speech Recommendations Dietitian Recommendations/Changes: Rec diet change to liberal Regular r/t poor po intake 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 Will offer CIB with meals for increased nutrition if consumed. - Follow Up Care Primary Care Physician: Lexa Brooks DO [Primary Care Provider] - Please follow up with your Primary Care Physician in: two weeks
--- NOTE | 2017-07-29 11:38 | PCM.DC.SUM ---
Discharge Date and Diagnosis - Problem List Patient Problems: Active and Suspected Problems Near syncope (Acute) Vertigo (Acute) Date of Admission: 07/25/17 Date of Discharge: 07/29/17 - Primary Discharge Diagnosis Active and Suspected Problems Near syncope (Acute) Vertigo (Acute) - Secondary Discharge Diagnosis Chronic Problems Dysphagia (Chronic) Dementia (Chronic) Hospital Course and Treatment Imaging Results: 07/25/17 18:08 Urine Catheter - Catheter Urine Culture - Final Culture exhibits no growth. Operations: None Procedures: None Summary of Care Provided: The patient is an 81 year old F with history of hypertension and dementia was discharged on 07/23/2017 after management for an unwitnessed fall with head laceration status post suture came to ER for dizziness, lightheadedness and vertigo. She was managed for vertigo. CT head done on 07/22 of head and cervical spine were negative for any acute injury. Symptoms resolved spontaneously. Labs wre only significant for sinus bradycardia in EKG of 55bpm. Vitals remained stable. She had an occipital scalp laceration from a previous fall which had been sutured; sutures were removed on 07/27/17. She had episodes of insomnia which improved with administration of melatonin. Patient remained stable and was discharged to SNF after family agreed to placement. She was discharged on 07/29/17. She is to follow up with her PCP. A Discharge Diet: - - CARDIAC DIET Discharge Activity: Return to Normal Activity, - - fall precautions May resume sexual activity in: No Restrictions Weight Bearing Status: Weight bearing as tolerated Call your doctor if you observe: Dizziness Home Medications: Medications to take at Discharge Atenolol [Tenormin (beta ginette)] 25 mg PO DAILY 02/15/16 Simvastatin [Zocor] 20 mg PO QHS 02/15/16 Donepezil HCl [Aricept] 10 mg PO DAILY 07/25/17 Memantine Hydrochloride [Namenda] 10 mg PO BID 07/25/17 Valsartan [Diovan] 160 mg PO DAILY 07/25/17 Primary Care Physician: Lexa Brooks DO [Primary Care Provider] - Please follow up with your Primary Care Physician in: two weeks Disposition: Long Term facility Minutes spent on discharge:: 35 Patient Condition:: Good Medical Necessity - Tobacco Use Smoking Status: Never smoker Meaningful Use Info Meaningful Use Diagnoses (Choose all that apply): None applicable Code Visit Inpatient E&M: 15882 Disch Hosp
== END 2017-07-29 13:46 | disposition skilled nursing facility (03) | DRG 312 ==
LOC: ED 18:24 → MS3 19:34
PROVIDERS: Internal Medicine; Admitting Provider Internal Medicine; Emergency Provider Emergency Medicine; Family Provider Student in an Organized Health Care Education/Training Program; PCP Student in an Organized Health Care Education/Training Program; Visit Provider Student in an Organized Health Care Education/Training Program
DX: R55 Syncope and collapse (principal); F02.81 Dementia in other diseases classified elsewhere, unspecified severity, with behavioral disturbance; R42 Dizziness and giddiness; I10 Essential (primary) hypertension; S01.01XD Laceration without foreign body of scalp, subsequent encounter; W19.XXXD Unspecified fall, subsequent encounter; G30.9 Alzheimer's disease, unspecified; R13.10 Dysphagia, unspecified; R62.7 Adult failure to thrive; S51.812A Laceration without foreign body of left forearm, initial encounter; X58.XXXA Exposure to other specified factors, initial encounter
CPT/HCPCS: 36415; 70450; 72125; 80048; 81001; 82962; 84484; 85025; 87086; 90471; 90715; 93005; 96361; 96374; 97110; 97116; 97162; 97165; 97166; 97530; 97802; 99218; 99283; 99285; J7030; P9612; A4216; G0378; J2405

== ENCOUNTER → 2018-08-06 | Outpatient (CLI) | payer MEDICARE, SELFPAY ==
[2017-07-25 20:00] VITALS: BMI 24.1
[2018-08-06 12:02] LABS: BNP,B-Type NATRIURETIC PEPTIDE 31.6 pg/mL (0-100)
== END | disposition home or self-care (01) ==
PROVIDERS: Family Provider Student in an Organized Health Care Education/Training Program; PCP Student in an Organized Health Care Education/Training Program; Referring Provider Nurse Practitioner Adult Health; Visit Provider Nurse Practitioner Adult Health
DX: I13.0 Hypertensive heart and chronic kidney disease with heart failure and stage 1 through stage 4 chronic kidney disease, or unspecified chronic kidney disease (principal); N18.9 Chronic kidney disease, unspecified; I50.9 Heart failure, unspecified; R60.9 Edema, unspecified
CPT/HCPCS: 83880

== ENCOUNTER 2018-09-12 09:50 | Emergency (ER) | payer MEDICARE, OTHER, SELFPAY ==
[2018-09-12 09:55] VITALS: BP 97/66; PULSE 98; RESP 22; TEMP 36.6; O2SAT 98; BMI 27.3
--- NOTE | 2018-09-12 10:11 | EKG12_ITS ---
Test Reason : SOB Blood Pressure : / mmHG Vent. Rate : 097 BPM Atrial Rate : 097 BPM P-R Int : 160 ms QRS Dur : 080 ms QT Int : 342 ms P-R-T Axes : 034 -05 097 degrees QTc Int : 434 ms Normal sinus rhythm Cannot rule out Anterior infarct , age undetermined Abnormal ECG Confirmed by JAYCEE CAMACHO, KEN ([id number]), news assignment editor NATANAEL TADEO ([id number]) on 09/13/2018 12:12:24 PM Referred By: KENNA Confirmed By:KEN CHAMPION MD
[2018-09-12 10:40] VITALS: O2SAT 99
--- NOTE | 2018-09-12 10:48 | RAD_ITS ---
STUDY: X-RAY CHEST REASON FOR EXAM: Female, 82 years old. Shortness of breath. TECHNIQUE: Single frontal view of the chest. COMPARISON: June 08, 2016 FINDINGS: Low volume inspiration with bibasilar atelectasis. There is no demonstrated pleural abnormality. Stable cardiomegaly. Normal mediastinum and aniyah. Normal visualized pulmonary arteries. Aortic tortuosity with calcification unchanged. Normal visualized thoracic spine. Normal visualized ribs, clavicles, and shoulders. New moderate-sized hiatal hernia. RAD/Chest 1 View (Portable) IMPRESSION: Stable cardiomegaly. Low volume inspiration with bibasilar atelectasis and new hiatal hernia. No acute finding. Electronically Signed: Donny Davis MD at 11:18 EDT , Service support ,
[2018-09-12] MEDS: 0.9% Normal Saline 1,000 ML 1000 ML IV (10:58)
[2018-09-12 11:40] LABS: International Normalized Ratio 1.4; Prothrombin Time (Protime)PT. 16.5 SECONDS (11.7-14.9)
[2018-09-12 11:41] VITALS: BP 98/67; PULSE 79; RESP 19; O2SAT 99
[2018-09-12 11:41] LABS: Partial Thromboplast Time 32.4 Seconds (24.1-36.2)
[2018-09-12 11:43] LABS: Absolute Lymphocyte Count 1.97 X10^3/ul (0.83-4.51); Absolute Neutrophil Count 8.8 X10^3/uL (2.0-7.7); Basophil# 0.02 X10^3/uL; Basophil% 0.2 % (0-1); Eosinophil# 0.19 X10^3/uL; Eosinophils% 1.6 % (0-5); Hematocrit 39.2 % (37-47); Hemoglobin 12.8 g/dl (12.0-15.0); Lymphocyte # 1.97 X10^3/ul (4.0); Lymphocyte % 16.5 % (19-41); Mean Corp Hgb Conc 32.7 g/gl (32-36); Mean Corpuscular Hgb 30.2 pg (27.0-32.0); Mean Corpuscular Volume 92.5 fL (81-99); Monocyte# 0.95 X10^3/uL; Monocyte% 7.9 % (0-10); Neutrophil # 8.77 X10^3/uL (2.7-7.7); Neutrophil % 73.3 % (47-70); POSITIVE COUNT NO; POSITIVE DIFFERENTIAL NO; POSITIVE MORPHOLOGY NO; Platelet Count 116 K/mm3 (150-450); RBC Distribution Width CV 13.5 % (11.6-14.6); RBC Distribution Width SD 45.7 fl (35.1-43.9); Red Blood Count 4.24 M/mm3 (4.2-5.4)
[2018-09-12 11:44] LABS: Absolute Nucleated RBC Count 0.02 10^3/uL (0-5); NRBC Flagged by Analyzer 0.1 % (0-5)
[2018-09-12 11:55] LABS: Anion Gap 9 (5-15); BUN 78 mg/dL (7-18); BUN/Creat Ratio 26.9 RATIO (10-20); Calcium,Total 8.5 mg/dL (8.5-10.1); Chloride 101 mmol/L (98-107); EST Glomerular Filtration Rate 16 mL/min (>60); Est Glom Filt Rate - Afr Amer 20 mL/min (>60); Estimated Creatinine Clearance 12.69 ml/min; Glucose 155 mg/dL (74-106); Potassium 3.8 mmol/L (3.5-5.1); Sodium Level 135 mmol/L (136-145); Thyroid Stim Hormone (TSH) 2.22 uIU/mL (0.358-3.74)
[2018-09-12 11:57] LABS: Lactic Acid 3.2 mmol/L (0.4-2.0)
[2018-09-12 12:00] VITALS: BP 111/49; PULSE 82; RESP 25; O2SAT 99
[2018-09-12 12:13] LABS: Color, Urine Yellow (Yellow); Glucose, Dipstick 100 mg/dl (Normal); Ketone-Dipstick Negative (Negative); Leukocyte Esterase-Dipstick 25 /ul (Negative); Nitrite-Dipstick Negative (Negative); Occult Blood-Urine Negative /ul (Negative); Protein-Dipstick 30 mg/dl (Negative); Specific Gravity, Urine 1.015 (1.002-1.030); Urine Bilirubin Dipstick Negative (Negative); Urine Clarity Clear (Clear); Urine Urobilinogen Normal (Normal)
[2018-09-12 12:17] LABS: Bacteria 1+ /hpf (None Seen); Mucous, Urine 1+ /hpf (<or=2+); Red Blood Cells-Urine 0-5 SEEN /hpf (0-5); Squamous Epithelial Cells - UA 0-5 SEEN /hpf (5-10); White Blood Cells 0-5 SEEN /hpf (0-5)
--- NOTE | 2018-09-12 12:39 | ED.DCSUM_ITS ---
- ER Visit Summary Date of Service: 09/12/18 Chief Complaint: Shortness of breath History of Present Illness: The patient is a 82 F sent from [facility] for shortness of breath, feet swelling and low blood pressure. History is limited as the patient has underlying dementia. Family is at the bedside and state that she cannot provide much information. Family reports in addition that she is not eating or drinking much. She is DNR Comfort Care arrest, but they do not want any other heroic measures. Her daughter is her primary caregiver and she is returning from out of town currently. She is expected to be in [facility]. Physical Examination: Afebrile. Blood pressure 97/66 and heart rate 98. Respiratory rate 22. Patient is alert but does not speak. She does track me about the room. Head and neck are atraumatic. Heart regular. Lungs clear. Abdomen soft and nontender. Patient has trace lower extremity edema which is symmetric. Test Results: EKG showed sinus rhythm at a rate of 97. Chest x-ray showed chronic changes, cardiomegaly, new hiatal hernia. White count 12 and platelets 116. 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 Glucose 155, BUN 78 and creatinine 2.90. This is increased from baseline. INR 1.4 and PTT normal. Urinalysis unremarkable. Troponin normal. Lactate is 3. TSH normal. Emergency Department Course and Treatment: Patient placed on a monitor. EKG as above. Lab work and chest x-ray ordered. She was treated with fluids. On reevaluation, patient has a stable blood pressure, 111/49. She does not display any signs of respiratory distress. Her oxygen is normal. Her x-ray was unremarkable. Patient does have criteria for severe sepsis, but does not have a source identified. She is not in shock or displaying signs of shock. I will hold antibiotics at this time in consultation with the hospitalist. I contacted the hospitalist to admit. Family is at bedside. They like her admitted for observation to see how she does. They are not ready for hospice consult or palliative consult at this time, but if it appears that she is not improving, they would be interested. They would also like her daughter to be present. She returns from out of town [facility]. Right now they would still like full measures. Hospitalist spoke with the family including the daughter. They would like a hospice evaluation. The patient does not meet inpatient hospice criteria. assistant manager/embalmer was involved. She spoke with her facility. She will have a hospice consult at her facility and they will transfer her accordingly to hospice as needed. Treatment Plan: As above Disposition: Discharge Impression: 1. Lactic acidosis 2. Leukocytosis 3. Acute kidney injury This note was generated with [employer] dictation software. It may contain incorrect words, spelling, and punctuation that were not noted in review of the chart prior to signing ED Disposition - Plan for ED Patient: Referrals: Lexa Brooks DO [Primary Care Provider] -
[2018-09-12 13:05] VITALS: BP 96/59; PULSE 78; RESP 16; O2SAT 98
--- NOTE | 2018-09-12 13:15 | CM.ED ---
SOCIAL WORK INFORMANT:HOSPITALIST-DR. ATKINSON REASON FOR CONSULT: D/C NEEDS/HOSPICE CONSULT DISCUSSED CASE WITH DR. PIERSON AND HOSPITALIST. CALL TO [facility] TO DISCUSS PATIENT'S ED VISIT AND RECOMMENDATION FOR HOSPICE CONSULT. THIS WORKER SPOKE WITH SHA FROM [facility]. PER SHA, PATIENT ABLE TO D/C BACK TO [facility] WITH HOSPICE CONSULT. [facility] WILL COORDINATE CONSULT AND PATIENT'S NEEDS. SPOKE WITH PATIENT'S FAMILY WHO IS PRESENT HERE IN THE ED AND PATIENT'S DAUGHTER/HPOA, LENI OVER THE PHONE. ALL IN AGREEMENT WITH THE ABOVE PLAN. DR. PIERSON UPDATED. FABRIC LAY OUT WORKER TO SET UP TRANSPORTATION BACK TO [facility]. SHERRI OG, CLINICAL INFORMATICS EDUCATOR, PATIENT PORTAL CONCIERGE.
--- NOTE | 2018-09-12 13:15 | CASEMGMT ---
RN CM Assessment Introduced role of RN CM to patient, patient Augie Estrada and son-in-law Chucky at bedside. Also, s/w patient Dtr Barbara Alex on phone in room during this time, states she is the patient's HPOA.? Patient is alert, does not talk much to this CM when asking questions, all questions answered by family at bedside. ?Care providers, pharmacy, and demographics verified. Presentation: SOB, Pain all over & decreased eating & drinking the last 3 weeks. Plan: Endorsed to Food And Nutrition Teacher Joslyn as Dtr Barbara is electing to have patient placed on Hospice and has questions about returning to [facility]. Re-Admit: No Barriers/Issues: None. PCP: Per patient - has a rounding provider at the facility Specialists: None [facility] Insurance: [facility] A&B, O [facility] Rx Benefit:?Yes LNOK: Dtr Barbara Johnson LW/HPOA: Yes both, not on file at [facility]. HPOA- Dtr Barbara Alex Living Arrangements:?Lives at [facility] ADL?s: Ambulates with walker per , requires assistance with all ADLs Transportation: Family DME: Walker, WC, Shower Chair. Denies all other DME HHC: None SNF: none Goal: Back to the [facility] DC PLAN: Same as Goal. Please refer to PEREZ Jorgensen note for further documentation on arrangements. GERALD Champagne
--- NOTE | 2018-09-12 13:15 | ED.DEP ---
ED Disposition - Plan for ED Patient: Instructions: Starting Hospice Referrals: Lexa Brooks DO [Primary Care Provider] - Additional Instructions: Follow up with Hospice services at [facility]. [facility] will arrange further placement as needed per hospice.
[2018-09-12 13:39] LABS: BNP,B-Type NATRIURETIC PEPTIDE 30.7 pg/mL (0-100)
[2018-09-12 15:24] LABS: Reflex Lactate? Y
--- NOTE | 2018-09-12 15:59 | CON.PCM_ITS ---
Problem List (1) CKD (chronic kidney disease) stage 4, GFR 15-29 ml/min Status: Chronic Reason for Consult Date of Consultation: 09/12/18 Reason for Consultation: CKD IV, edema History of Present Illness: The patient is a 82 year old F presents with lower extremity edema at her assisted living. Was brought in for evaluation. Creatinine was measured at 2.9, up from 1.08 back in July 2017. Family was aware that her creatinine was getting worse, the numbers of which I aware of, after follow-up with patient's primary care doctor, Dr. Brooks. Patient is demented and son to provide any history so much of the history is obtained through the emergency room physician as well as family at bedside. [] Past Medical History Past Medical History (Chronic Problems): Chronic Problems CKD (chronic kidney disease) stage 4, GFR 15-29 ml/min (Chronic) Dysphagia (Chronic) Dementia (Chronic) Allergies No Known Allergies Allergy (Verified 09/12/18 09:57) Home Medications: Ambulatory Orders Medication Instructions Recorded Donepezil HCl [Aricept] 10 mg PO DAILY 07/25/17 Memantine Hydrochloride [Namenda] 10 mg PO BID 07/25/17 Valsartan [Diovan] 160 mg PO DAILY 07/25/17 Apixaban [Eliquis] 2.5 mg PO DAILY 09/12/18 Doxycycline 100 mg PO BID 09/12/18 Hydrochlorothiazide [Hctz] 25 mg PO DAILY 09/12/18 Hydroxyzine HCl 12.5 mg PO Q6H PRN 09/12/18 Prednisone 40 mg PO QODAY 09/12/18 Surgical History: tonsillectomy, - - Tubal ligation, removal of breast cyst Psychiatric History: - - Alzheimer's dementia FACTORY ENGINEER History: No pertinent FACTORY ENGINEER history Smoking Status: Never smoker - *Family History Maternal History Items: Cancer - Colon cancer Paternal History Items: - - Alzheimer's dementia Review of Systems Comment: Unable to obtain review of systems from the patient as she is confused and demented. Please refer to HPI for further details. - Physical Exam General: - - Awake. Confused. Inconsistent with answering questions. Makes an odd noise whenever she is examined but when distracted does not make those noises. HEENT: Atraumatic, Normocephalic Oral: Moist Mucosa, No Gingival or Mucosal Lesions/ Ulcerations Neck: No Nodes, Thyroid Normal Size and Texture Lungs: Clear to auscultation, Diminished Cardiovascular: Regular rate, No murmurs Abdomen: Bowel Sounds Present, Soft, Non Tender Extremities: No edema, Capillary Refill Less than 3 Seconds Skin: No rashes, No breakdown Psych/Mental Status: Agitated, Anxious Vital Signs Temp Pulse Resp BP Pulse Ox 36.6 C 78 16 96/59 L 98 09/12/18 09:55 09/12/18 13:05 09/12/18 13:05 09/12/18 13:05 09/12/18 13:05 Oxygen Delivery Method Room Air Weight: 72.2 kg Body Mass Index (BMI) 27.3 Laboratory Tests Past 24 Hrs 09/12/18 09/12/18 09/12/18 11:20 11:20 11:20 WBC 12.0 H RBC 4.24 Hgb 12.8 Hct 39.2 MCV 92.5 MCH 30.2 MCHC 32.7 RDW 13.5 RDW Differential 45.7 H Plt Count 116 L MPV 12.0 Immature Gran % (Auto) 0.500 Neut % (Auto) 73.3 H Lymph % (Auto) 16.5 L [place] % (Auto) 7.9 Eos % (Auto) 1.6 Baso % (Auto) 0.2 Absolute Neuts (auto) 8.8 H Absolute Lymphs (auto) 1.97 Total Counted Not Reportable Nucleated RBC % 0.1 Absolute Retic 0.02 PT INR APTT Sodium 135 L Potassium 3.8 Chloride 101 Carbon Dioxide 25.0 Anion Gap 9 BUN 78 H Creatinine 2.90 H Estim Creat Clear Calc 12.69 Est GFR (MDRD) Af Amer 20 L Est GFR (MDRD) Non-Af 16 L BUN/Creatinine Ratio 26.9 H Glucose 155 H Lactic Acid Calcium 8.5 Troponin I 0.025 B-Natriuretic Peptide Cancelled TSH 2.22 Urine Color Urine Clarity Urine pH Ur Specific [place] Urine Protein Urine Glucose (UA) Urine Ketones Urine Occult Blood Urine Nitrite Urine Bilirubin Urine Urobilinogen Ur Leukocyte Esterase Urine RBC Urine WBC Ur Squamous Epith Cells Urine Bacteria Urine Mucus 09/12/18 09/12/18 09/12/18 11:20 11:20 12:00 WBC RBC Hgb Hct MCV MCH MCHC RDW RDW Differential Plt Count MPV Immature Gran % (Auto) Neut % (Auto) Lymph % (Auto) [place] % (Auto) Eos % (Auto) Baso % (Auto) Absolute Neuts (auto) Absolute Lymphs (auto) Total Counted Nucleated RBC % Absolute Retic PT 16.5 H INR 1.4 APTT 32.4 Sodium Potassium Chloride Carbon Dioxide Anion Gap BUN Creatinine Estim Creat Clear Calc Est GFR (MDRD) Af Amer Est GFR (MDRD) Non-Af BUN/Creatinine Ratio Glucose Lactic Acid 3.2 H Calcium Troponin I B-Natriuretic Peptide TSH Urine Color Yellow Urine Clarity Clear Urine pH 5.0 Ur Specific [place] 1.015 Urine Protein 30 H Urine Glucose (UA) 100 H Urine Ketones Negative Urine Occult Blood Negative Urine Nitrite Negative Urine Bilirubin Negative Urine Urobilinogen Normal Ur Leukocyte Esterase 25 H Urine RBC 0-5 SEEN Urine WBC 0-5 SEEN Ur Squamous Epith Cells 0-5 SEEN Urine Bacteria 1+ Urine Mucus 1+ 09/12/18 12:45 WBC RBC Hgb Hct MCV MCH MCHC RDW RDW Differential Plt Count MPV Immature Gran % (Auto) Neut % (Auto) Lymph % (Auto) [place] % (Auto) Eos % (Auto) Baso % (Auto) Absolute Neuts (auto) Absolute Lymphs (auto) Total Counted Nucleated RBC % Absolute Retic PT INR APTT Sodium Potassium Chloride Carbon Dioxide Anion Gap BUN Creatinine Estim Creat Clear Calc Est GFR (MDRD) Af Amer Est GFR (MDRD) Non-Af BUN/Creatinine Ratio Glucose Lactic Acid Calcium Troponin I B-Natriuretic Peptide 30.7 TSH Urine Color Urine Clarity Urine pH Ur Specific [place] Urine Protein Urine Glucose (UA) Urine Ketones Urine Occult Blood Urine Nitrite Urine Bilirubin Urine Urobilinogen Ur Leukocyte Esterase Urine RBC Urine WBC Ur Squamous Epith Cells Urine Bacteria Urine Mucus Assessment/Plan All Active Problems Fall (Acute) Near syncope (Acute) Vertigo (Acute) Abnormal CT scan, head (Acute) Assessment: 1. Chronic kidney disease stage IV: It is worse from 2018 but it is unclear how much worse it is in the interim. 2. Dementia: Complicates care. Patient unable to make any decisions in regards to her own care. Just my brief interaction with patient patient seems very advanced in regards to her dementia. 3. Lower extremity edema: Currently none but the patient is laying supine so that may have an effect. Plan: Patient has poor performance status, that as well as with her dementia clarified with patient's daughter, who is her power of microstrategy reports developer, that pursuing comfort measures would be the most appropriate course of action. She was in agreement. I did offer to bring the patient and to give her fluids but did state that given the patient's dementia that she may have some sundowning and acutely get worse. But if the plan was to continue to make the patient comfortable and then returning back to her assisted living, if they would accept her, and having hospice services involved I explained that without aggressive measures patient would but was not imminently dying. I discussed with Dr. Starr and explained that the patient could be discharged if they would accept her back with hospice involvement. I did talk with case management as well about this. The plan is for the patient to go back to her assisted living with hospice involved. Advanced care planning: Spent additional 20 minutes discussing aggressiveness of care with the patient's daughter as well as other family members and discussed also hospice care. Code Visit OBSV E&M: 12206 Subsequent observation care L2 Procedures: 34907 Advncd Care Plan 30 Min
== END 2018-09-12 15:07 | disposition home or self-care (01) ==
LOC: ED 10:47
PROVIDERS: Emergency Provider Emergency Medicine; Family Provider Student in an Organized Health Care Education/Training Program; PCP Student in an Organized Health Care Education/Training Program
DX: D72.829 Elevated white blood cell count, unspecified (principal); E87.2 Acidosis; I13.10 Hypertensive heart and chronic kidney disease without heart failure, with stage 1 through stage 4 chronic kidney disease, or unspecified chronic kidney disease; N18.4 Chronic kidney disease, stage 4 (severe); N17.9 Acute kidney failure, unspecified; G30.9 Alzheimer's disease, unspecified; F02.80 Dementia in other diseases classified elsewhere, unspecified severity, without behavioral disturbance, psychotic disturbance, mood disturbance, and anxiety; K44.9 Diaphragmatic hernia without obstruction or gangrene; E78.00 Pure hypercholesterolemia, unspecified; F41.9 Anxiety disorder, unspecified; I48.91 Unspecified atrial fibrillation; Z86.2 Personal history of diseases of the blood and blood-forming organs and certain disorders involving the immune mechanism; Z66 Do not resuscitate; Z79.01 Long term (current) use of anticoagulants; Z79.899 Other long term (current) drug therapy
CPT/HCPCS: 36415; 71045; 80048; 81001; 83605; 83880; 84443; 84484; 85025; 85610; 85730; 93005; 96360; 96361; 99285; J7030; P9612; A4216